=== PATIENT | male | born 1955 | race Caucasian/White ===

== ENCOUNTER 2020-06-04 19:33 | Emergency (ER) | payer MEDICARE, SELFPAY ==
--- NOTE | 2020-06-04 19:39 | XRR_ITS ---
PROCEDURE INFORMATION: Exam: XR Lumbosacral Spine, 2 or 3 Views Exam date and time: 06/04/2020 8:05 PM Age: 64 years old Clinical indication: Low back pain; Prior surgery; Additional info: Pain no trauam TECHNIQUE: Imaging protocol: XR of the lumbosacral spine, 2 or 3 views. COMPARISON: CT Abdomen/Pelvis Renal [id number] 07/27/2018 10:34 AM FINDINGS: Vertebrae: Grade 1 anterior listhesis of L4 on L5. Degenerative change and prominent facet arthropathy. Anatomic alignment. Gastrointestinal tract: Prominent stool. Vasculature: Vascular calcification. XR/XR lumbar spine 2-3V* [id number] IMPRESSION: 1. Grade 1 anterior listhesis of L4 on L5. 2. Degenerative change and prominent facet arthropathy.
[2020-06-04 20:38] VITALS: BP 121/76; PULSE 73; RESP 14; TEMP 35.8; O2SAT 95; BMI 33.8
[2020-06-04 23:46] LABS: Add Urine Microscopic? YES; Bilirubin Urine Neg (NEGATIVE); Blood Urine Neg (Negative); Glucose Urine UA 4+ (Normal); Ketones Urine Negative (Negative); Leukocyte Esterase Urine Negative (Negative); Nitrate Urine Negative (Negative); Protein Urine Trace (Negative); Urine Appearance Clear (CLEAR); Urine Color Yellow (Yellow); Urobilinogen Urine Norm (Negative); pH Urine 5 (5-7)
--- NOTE | 2020-06-04 23:54 | CTR_ITS ---
PROCEDURE INFORMATION: Exam: CT Abdomen And Pelvis Without And With Contrast Exam date and time: 06/04/2020 1:27 AM Age: 64 years old Clinical indication: Abdominal pain; Generalized; Patient HX: HX renal CA TECHNIQUE: Imaging protocol: Computed tomography of the abdomen and pelvis without and with intravenous contrast. Radiation optimization: All CT scans at this facility use at least one of these dose optimization techniques: automated exposure control; mA and/or kV adjustment per patient size (includes targeted exams where dose is matched to clinical indication); or iterative reconstruction. Contrast material: VISI; Contrast volume: 95 ml; Contrast route: INTRAVENOUS (IV); COMPARISON: CT Abdomen/Pelvis Renal [id number] 07/27/2018 10:34 AM RADIATION DOSE METRICS: Total DLP (mGy-cm): 2707.98 FINDINGS: Liver: Normal. No mass. Gallbladder and bile ducts: There are numerous gallstones seen in the dependent portion of the gallbladder. There are no inflammatory changes seen to suggest cholecystitis. Pancreas: Normal. No ductal dilation. Spleen: Normal. No splenomegaly. Adrenals: Normal. No mass. Kidneys and ureters: The there is a stable intermediate attenuation nodularity seen on the anterior aspect of the right kidney measuring approximately 1.5 cm. Stomach and bowel: Unremarkable. No obstruction. No mucosal thickening. Appendix: The appendix is visualized and is normal in configuration. Intraperitoneal space: Unremarkable. No free air. No significant fluid collection. Vasculature: Unremarkable. No abdominal aortic aneurysm. Lymph nodes: Unremarkable. No enlarged lymph nodes. Bladder: Unremarkable as visualized. Reproductive: Unremarkable as visualized. Bones/joints: Unremarkable. No acute fracture. Soft tissues: Unremarkable. CT/CT abdomen pelvis wo/w [id number] IMPRESSION: 1. There are no acute abdominal findings. 2. Multiple gallstones without evidence of cholecystitis. 3. Stable soft tissue attenuation nodularity on the anterior aspect of the right kidney measuring 1.5 cm. Radiation Dose CTDIVOL = (mGy): DLP = 2707.98 (mGy-cm)
--- NOTE | 2020-06-04 23:55 | CTR_ITS ---
PROCEDURE INFORMATION: Exam: CT Lumbar Spine Without Contrast Exam date and time: 06/04/2020 1:27 AM Age: 64 years old Clinical indication: Low back pain TECHNIQUE: Imaging protocol: Computed tomography images of the lumbar spine without contrast. Radiation optimization: All CT scans at this facility use at least one of these dose optimization techniques: automated exposure control; mA and/or kV adjustment per patient size (includes targeted exams where dose is matched to clinical indication); or iterative reconstruction. COMPARISON: CR XR lumbar spine 2-3V* [id number] 06/04/2020 7:59 PM RADIATION DOSE METRICS: Total DLP (mGy-cm): 2206.62 FINDINGS: Vertebrae: No acute fracture. Normal alignment. Discs/Spinal canal/Neural foramina: There is a loss of disc height seen from L3-L5. At L3-L4, there is broad-based posterior disc bulging present. Moderate bilateral ligamentum flavum hypertrophy and facet hypertrophy is seen circumferentially narrowing the spinal canal. At L4-L5, prominent broad-based posterior disc bulging is seen. Moderate facet and ligamentum flavum hypertrophy is also present bilaterally circumferentially narrowing the spinal canal. At L5-S1, broad-based posterior disc bulging is seen. Soft tissues: Unremarkable. CT/CT lumbar spine wo con* [id number] IMPRESSION: 1. There are no acute osseous findings. 2. 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 Radiation Dose CTDIVOL = (mGy): DLP = 2206.62 (mGy-cm)
--- NOTE | 2020-06-04 23:55 | CTR_ITS ---
PROCEDURE INFORMATION: Exam: CT Thoracic Spine Without Contrast Exam date and time: 06/04/2020 1:27 AM Age: 64 years old Clinical indication: Pain in thoracic spine TECHNIQUE: Imaging protocol: Computed tomography images of the thoracic spine without contrast. Radiation optimization: All CT scans at this facility use at least one of these dose optimization techniques: automated exposure control; mA and/or kV adjustment per patient size (includes targeted exams where dose is matched to clinical indication); or iterative reconstruction. COMPARISON: No relevant prior studies available. RADIATION DOSE METRICS: Total DLP (mGy-cm): 2903.45 FINDINGS: Vertebrae: No acute fracture. Normal alignment. Discs/Spinal canal/Neural foramina: Loss of disc height and vacuum disc phenomenon is seen within the thoracic spine compatible with degenerative disc disease. Soft tissues: Unremarkable. CT/CT thoracic spin wo con* [id number] IMPRESSION: There are no acute osseous findings. Radiation Dose CTDIVOL = (mGy): DLP = 2903.45 (mGy-cm)
--- NOTE | 2020-06-04 23:55 | XRR_ITS ---
PROCEDURE INFORMATION: Exam: XR Chest, 1 View Exam date and time: 06/05/2020 12:45 AM Age: 64 years old Clinical indication: Chest pain and other: Low back and leg pain; Type not specified; Prior surgery; Surgery date: 6+ months; Surgery type: Cabg; Pacemaker TECHNIQUE: Imaging protocol: XR of the chest Views: 1 view. COMPARISON: CR Chest 1 [place] [id number] 01/30/2019 7:50 AM FINDINGS: Tubes, catheters and devices: AICD. Lungs: Interstitial prominence without acute airspace disease. Pleural space: No pneumothorax or pleural effusion. Heart/Mediastinum: No cardiomegaly. Bones/joints: Median sternotomy. Degenerative change. When correlating with the previous study, no significant interval changes are present. XR/XR chest 1V portable [id number] IMPRESSION: Stable appearance of the chest, not significantly changed from 01/30/19.
[2020-06-05 00:18] LABS: Basophils # 0.1 10^3/uL (0.0-0.1); Basophils % 1.2 %; Eosinophils # 0.1 10^3/uL (0.0-0.8); Eosinophils % 1.5 %; Hemoglobin 14.5 g/dL (11.7-16.6); Lymphocytes # 2.1 10^3/uL (0.8-4.8); Lymphocytes % 25.2 %; Mean Corpuscular HGB Conc 33.7 g/dL (30.0-36.0); Monocytes % 12.1 %; Neutrophils # 4.94 10^3/uL (1.8-7.7); Neutrophils % 58.6 %; Nucleated Red Blood Cells % 0 %; Platelet Count 200 10^3/cmm (130-400); Red Blood Count 4.83 10^6/uL (4.1-5.3); Red Cell Distribution Width 12.8 % (12.1-15.1); White Blood Count 8.4 10^3/uL (4.0-10.0)
[2020-06-05 00:39] LABS: Alanine Aminotransferase 17 U/L (0-41); Albumin Level 4.9 g/dL (3.5-5.2); Alkaline Phosphatase 126 IU/L (40-130); Anion Gap 15.6 (5-19); Aspartate Amino Transferase 14 U/L (0-40); Blood Urea Nitrogen 31 mg/dL (8-23); Carbon Dioxide 26 mmol/L (22-29); Chloride 91 mmol/L (98-107); Globulin 2.4 g/dL (1.3-4.6); Glomerular Filtration Rate 50.7 mL/min (90-130); Glucose 374 mg/dL (65-115); Lipase 46 U/L (13-60); Magnesium 2.1 mg/dL (1.7-2.3); Osmolality Calculated 278 mOsm/kg (285-295); Potassium 4.6 mmol/L (3.5-5.1); Sodium 128 mmol/L (136-145); Total Bilirubin 0.4 mg/dL (0.15-1.2); Total Protein 7.3 g/dL (6.6-8.7)
[2020-06-05 01:13] LABS: INR 0.93 (0.8-1.2)
--- NOTE | 2020-06-05 01:19 | W.ED.EXTPRO ---
HPI - Extremity Problem General: Chief complaint: Extremity Problem,Nontraumatic Stated complaint: lower back pain, leg pain Time Seen by Provider: 06/04/20 23:48 Source: patient Mode of arrival: ambulatory Limitations: no limitations History of Present Illness: HPI Narrative: Mr. Barron is a nice 64-year-old male who comes in complaining of low back pain. Patient states that he has chronic back pain and chronic flank pain secondary to a kidney mass. To his knowledge the mass has not metastasized and is not cancer that he is certain of. The patient's back pain is chronic but was made worse when he fell in the shower yesterday. Patient states since that time he is just been tired and fatigued and wanting to sleep more than normal. Feels weak all throughout his body. His back pain is slightly worse than normal and he believes this is from the fall. Patient has an MRI scheduled sometime later this month looking for any worsening of his degenerative disc disease. Associated symptoms: Deny chest pain, fever(s) or rash Review of Systems Const: Denies: fever(s), chills, body aches, fatigue, malaise or diaphoresis Eyes: Denies: change in vision, blurry vision, blind spots, photophobia, eye discharge or eye redness ENMT: Denies: throat pain, odynophagia, hoarseness, swelling of lips/tongue, oral sores, ear or mastoid pain, ear discharge, change in hearing or nasal discharge Card: Denies: chest pain, palpitations, irregular heart rhythm, edema, lightheadedness, syncope, pre-syncope, dyspnea on exertion or orthopnea Resp: Denies: dyspnea, productive cough, non-productive cough, wheezing, hemoptysis or chest congestion GI: Denies: abdominal pain, nausea, vomiting, hematemesis, coffee ground emesis, heartburn, diarrhea, constipation, GI cramping, hematochezia or melena : Denies: flank pain, dysuria, urinary frequency, urinary urgency or hematuria Musc: Reports: back pain; Denies: neck pain, extremity pain, extremity swelling, joint pain, joint swelling, joint redness, joint warmth or joint stiffness Skin/Breast: Denies: rash, pruritus, erythema, skin tenderness or jaundice Neuro: Denies: headache(s), numbness in extremities, weakness in extremities, sensory changes, lack of coordination, difficulty walking, dizziness, vertigo, confusion, Slurred speech present or seizure-like activity Jasper/Lymph: Denies: easy bruising, easy bleeding, petechiae, purpura or enlarged lymph nodes All/Imm: Denies: urticaria, throat swelling, tongue swelling, facial swelling or acute wheezing PFSH ED PFSH: Medical History Ascending aortic aneurysm BPH (benign prostatic hyperplasia) CKD (chronic kidney disease) stage 3, GFR 30-59 ml/min Congestive heart failure COPD (chronic obstructive pulmonary disease) Coronary artery disease CVA (cerebral vascular accident) Degenerative disc disease DM type 2 (diabetes mellitus, type 2) Hyperlipidemia Hypertension Kidney mass Myocardial infarction Surgical History Hx of CABG S/P percutaneous transluminal angioplasty (DIRECTOR OF ACCOUNTS RECEIVABLE) with stent placement Physical Exam Const: COMMON NORMALS: no acute distress, patient oriented x3, no limitations, healthy appearing and well nourished GENERAL APPEARANCE: cooperative, well kempt and well developed HENMT: COMMON NORMALS: normocephalic, atraumatic, external ears normal, EAC's normal and Normal external nose present HEAD & SCALP: normal to inspection, normocephalic and atraumatic FACE & SINUS: normal facial exam and face symmetric NOSE: Normal external nose present and Normal nares present EXTERNAL EAR: Yes external ears normal EXTERNAL AUDITORY CANAL: EAC's normal MOUTH: Normal oral and palatal mucosa present, lip normal and tongue normal Eye: COMMON NORMALS: Equal, round and reactive pupils present and conjunctivae normal GENERAL EYE: appearance normal, both eyes and all related structures ALIGNMENT: Yes alignment normal PERIORBITAL: periorbital findings normal EYELID: eyelids normal CONJUNCTIVA: Yes conjunctivae normal SCLERA: sclerae normal PUPIL: Yes Equal, round and reactive pupils present Neck/C-Spine: COMMON NORMALS: full ROM, no lymphadenopathy, supple, no meningeal signs and no JVD GENERAL: Yes normal visual inspection and Yes trachea midline Chest: COMMONS NORMALS: normal inspection of the chest and normal palpation of entire chest wall Resp: COMMON NORMALS: normal respiratory effort, No retractions and No use of accessory muscles EFFORT & INSPECTION: Yes able to speak in complete sentences and Yes symmetric chest movement AUSCULTATION: no crackles, no rales, no rhonchi and no wheezes Cardio: COMMON NORMALS: no JVD, regular rate, regular rhythm, S1 normal heart sound present and S2 normal heart sound present RATE: regular rate RHYTHM: regular rhythm HEART SOUNDS: S1 normal heart sound present, S2 normal heart sound present, no click, no gallops, no murmurs, no rubs and abnormal split S2 GI: COMMON NORMALS: Soft to palpation and No hepatosplenomegaly present PALPATION: Yes Soft to palpation, No Tenderness to palpation present (GI), No Guarding due to palpation present (GI), No Rigid due to palpation, Yes No hepatosplenomegaly present, No Hernia present, No Palpable mass present and No Pulsatile mass present : COMMON NORMALS: Yes no CVA tenderness BLADDER/KIDNEY EXAM: Yes no CVA tenderness Back/Pelvis: COMMON NORMALS: no CVA tenderness, thoracic and lumbar spine normal to inspection, no thoracic nor lumbar tenderness and thoraco-lumbar ROM normal Extremity: COMMON NORMALS: normal to inspection, full ROM, capillary refill normal, no joint enlargement, no clubbing, cyanosis or edema and no calf tenderness Neuro: COMMON NORMALS: patient oriented x3, CN's II-XII intact bilaterally, moves all extremities, no focal motor deficits and no sensory deficits noted MENINGEAL SIGNS: Yes no meningeal signs SPEECH: speech normal Psych: COMMON NORMALS: mental status grossly normal, Normal thought process present, cooperative, normal affect, speech normal and activity/motor behavior normal APPEARANCE: Yes well kempt SPEECH: Yes normal speech THOUGHT PROCESS: Normal thought process present Skin: COMMON NORMALS: no rashes or lesions noted, turgor normal, no jaundice, no petechiae and no mottling GENERAL SKIN EXAM: no rashes or lesions noted and turgor normal Course Vital Signs: Vital signs: Vital Signs Temperature 96.4 F L 06/04/20 20:38 Pulse Rate 76 06/05/20 04:09 Respiratory Rate 14 06/05/20 04:09 Blood Pressure 151/96 06/05/20 04:09 Pulse Oximetry 98 06/05/20 04:09 MDM - Extremity (Nontraumatic) MDM Narrative: Medical decision making narrative: The patient has exacerbated his chronic low back pain. His MRI in the future is supposed to look for a herniated disc but he has no leg weakness or loss of reflexes his tendon reflexes are 2/4 at the knees bilaterally and the ankles. There is no clonus present. His Babinski is normal. Patient has no loss of bowel or bladder control and he has no sign of cauda equina syndrome. The patient is negative for CRAFTI as a cause for his pain. I will go ahead and put him on some pain medicine and muscle relaxers and have him follow-up. I did work him up for what he described initially as cancer I was concerned may have metastasized although his history did not suggest a cord compressive syndrome but this mass is a 15 mm and only 1 mm bigger than 2 years ago. The patient wants to follow-up with Dr. Del Toro for further evaluation of this. Lab Data: Labs: Lab Results 06/04/20 06/04/20 06/04/20 Range/Units 00:58 22:15 23:58 WBC 8.4 (4.0-10.0) 10^3/ uL RBC 4.83 (4.1-5.3) 10^6/u L Hgb 14.5 (11.7-16.6) g/dL Hct 43.0 (42.0-52.0) % MCV 89.0 (80-94) fL MCH 30.0 (28.0-34.0) pg MCHC 33.7 (30.0-36.0) g/dL RDW 12.8 (12.1-15.1) % Plt Count 200 (130-400) 10^3/c mm MPV 10.0 (7.4-10.4) fL Neut % (Auto) 58.6 % Lymph % (Auto) 25.2 % [place] % (Auto) 12.1 % Eos % (Auto) 1.5 % Baso % (Auto) 1.2 % Neut # (Auto) 4.94 (1.8-7.7) 10^3/u L Lymph # (Auto) 2.1 (0.8-4.8) 10^3/u L [place] # (Auto) 1.0 H (0.2-0.9) 10^3/u L Eos # (Auto) 0.1 (0.0-0.8) 10^3/u L Baso # (Auto) 0.1 (0.0-0.1) 10^3/u L Nucleated RBC % (a uto) 0 % Nucleated RBCs # 0.0 /100WBC PT 12.80 (10.5-13.3) SECO NDS INR 0.93 (0.8-1.2) Specimen Type Sample Site ABG pH (7.35-7.45) ABG pCO2 (35-45) mmHg ABG pO2 (80.0-100.0) mmH g ABG HCO3 (22-26) mmol/L ABG Base Excess (-2.0-2.0) mmol/ L Wilber Test Hematocrit (42-52) % O2 Delivery Device FiO2 % Oracle Pl Sql Developer ID Sodium (136-145) mmol/L Potassium (3.5-5.1) mmol/L Chloride (98-107) mmol/L Carbon Dioxide (22-29) mmol/L Anion Gap (5-19) BUN (8-23) mg/dL Creatinine (0.7-1.2) mg/dL GFR Calculation (90-130) mL/min Glucose (65-115) mg/dL Calculated Osmolal ity (285-295) mOsm/k g Calcium (8.5-10.5) mg/dL Magnesium (1.7-2.3) mg/dL Total Bilirubin (0.15-1.2) mg/dL AST (0-40) U/L ALT (0-41) U/L Alkaline Phosphata se (40-130) IU/L Total Protein (6.6-8.7) g/dL Albumin (3.5-5.2) g/dL Globulin (1.3-4.6) g/dL Lipase (13-60) U/L Urine Color Yellow (Yellow) Urine Appearance Clear (CLEAR) Urine pH 5 (5-7) Ur Specific Gravit y 1.010 (1.005-1.030) Urine Protein Trace (Negative) Urine Glucose (UA) 4+ H (Normal) Urine Ketones Negative (Negative) Urine Blood Neg (Negative) Urine Nitrate Negative (Negative) Urine Bilirubin Neg (NEGATIVE) Urine Urobilinogen Norm (Negative) mg/dL Ur Leukocyte Violet ase Negative (Negative) Urine RBC None (0-2) /hpf Urine WBC None (0-5) /hpf Ur Squamous Epith Cells None (0-5) Amorphous Sediment Not Reportable Urine Bacteria None (NONE) 07/09/20 07/10/20 Range/Units 23:58 02:10 WBC (4.0-10.0) 10^3/ uL RBC (4.1-5.3) 10^6/u L Hgb (11.7-16.6) g/dL Hct (42.0-52.0) % MCV (80-94) fL MCH (28.0-34.0) pg MCHC (30.0-36.0) g/dL RDW (12.1-15.1) % Plt Count (130-400) 10^3/c mm MPV (7.4-10.4) fL Neut % (Auto) % Lymph % (Auto) % [place] % (Auto) % Eos % (Auto) % Baso % (Auto) % Neut # (Auto) (1.8-7.7) 10^3/u L Lymph # (Auto) (0.8-4.8) 10^3/u L [place] # (Auto) (0.2-0.9) 10^3/u L Eos # (Auto) (0.0-0.8) 10^3/u L Baso # (Auto) (0.0-0.1) 10^3/u L Nucleated RBC % (a uto) % Nucleated RBCs # /100WBC PT (10.5-13.3) SECO NDS INR (0.8-1.2) Specimen Type Arterial Sample Site Radial, left ABG pH 7.39 (7.35-7.45) ABG pCO2 43.3 (35-45) mmHg ABG pO2 80.0 (80.0-100.0) mmH g ABG HCO3 26.0 (22-26) mmol/L ABG Base Excess 0.7 (-2.0-2.0) mmol/ L Wilber Test Pos Hematocrit 43.6 (42-52) % O2 Delivery Device None FiO2 21.0 % Oracle Pl Sql Developer ID [email or web address] Sodium 128 L (136-145) mmol/L Potassium 4.6 (3.5-5.1) mmol/L Chloride 91 L (98-107) mmol/L Carbon Dioxide 26 (22-29) mmol/L Anion Gap 15.6 (5-19) BUN 31 H (8-23) mg/dL Creatinine 1.4 H (0.7-1.2) mg/dL GFR Calculation 50.7 L (90-130) mL/min Glucose 374 H (65-115) mg/dL Calculated Osmolal ity 278 L (285-295) mOsm/k g Calcium 10.0 (8.5-10.5) mg/dL Magnesium 2.1 (1.7-2.3) mg/dL Total Bilirubin 0.4 (0.15-1.2) mg/dL AST 14 (0-40) U/L ALT 17 (0-41) U/L Alkaline Phosphata se 126 (40-130) IU/L Total Protein 7.3 (6.6-8.7) g/dL Albumin 4.9 (3.5-5.2) g/dL Globulin 2.4 (1.3-4.6) g/dL Lipase 46 (13-60) U/L Urine Color (Yellow) Urine Appearance (CLEAR) Urine pH (5-7) Ur Specific Gravit y (1.005-1.030) Urine Protein (Negative) Urine Glucose (UA) (Normal) Urine Ketones (Negative) Urine Blood (Negative) Urine Nitrate (Negative) Urine Bilirubin (NEGATIVE) Urine Urobilinogen (Negative) mg/dL Ur Leukocyte Violet ase (Negative) Urine RBC (0-2) /hpf Urine WBC (0-5) /hpf Ur Squamous Epith Cells (0-5) Amorphous Sediment Urine Bacteria (NONE) Imaging Data^: CT Head: Radiologist's impression: [place] [address] CT Scan Report Signed Patient: Mike Barron Unit #: [id number] : 1955 Age/Sex: 64 / M ADM Date: 06/04/20 Loc: ER Room/Bed: Attending Dr: Ordering Provider/Ordering MD: Rosa Elena Rachel DO Date of Service: 06/05/20 Procedure(s): CT head wo con* [id number] Accession Number(s): [id number] Report Number: [id number] PROCEDURE INFORMATION: Exam: CT Head Without Contrast Exam date and time: 06/05/2020 1:32 AM Age: 64 years old Clinical indication: Injury or trauma; Fall; Initial encounter; Blunt trauma (contusions or hematomas); Without loss of consciousness; Additional info: Fall/injury/on blood thinners TECHNIQUE: Imaging protocol: Computed tomography of the head without contrast. Radiation optimization: All CT scans at this facility use at least one of these dose optimization techniques: automated exposure control; mA and/or kV adjustment per patient size (includes targeted exams where dose is matched to clinical indication); or iterative reconstruction. COMPARISON: CT head wo con* [id number] 01/26/2019 4:33 AM RADIATION DOSE METRICS: Total DLP (mGy-cm): 871.82 FINDINGS: Brain: There is moderate diffuse cerebral atrophy. Patchy areas of hypoattenuation are seen in the deep white matter of the cerebral hemispheres bilaterally compatible with deep white matter microvascular disease. Ventricles: Normal. No ventriculomegaly. Bones/joints: Unremarkable. No acute fracture. Sinuses: Visualized sinuses are unremarkable. No fluid levels. Mastoid air cells: Visualized mastoid air cells are well aerated. Soft tissues: Unremarkable. CT/CT head wo con* [id number] IMPRESSION: There are no acute intracranial findings. Radiation Dose CTDIVOL = (mGy): DLP = 871.82 (mGy-cm) Dictated By: Chaz Cruz MD Signed By: Chaz Cruz MD Signed Date/Time: 06/05/20217 DD/ 6 CT Thoracic Spine: Radiologist's impression: [place] [address] CT Scan Report Signed Patient: Mike Barron Unit #: [id number] : 1955 Age/Sex: 64 / M ADM Date: 06/04/20 Loc: ER Room/Bed: Attending Dr: Ordering Provider/Ordering MD: Rosa Elena Rachel DO Date of Service: 06/04/20 Procedure(s): CT thoracic spin wo con* [id number] Accession Number(s): [id number] Report Number: [id number] PROCEDURE INFORMATION: Exam: CT Thoracic Spine Without Contrast Exam date and time: 06/04/2020 1:27 AM Age: 64 years old Clinical indication: Pain in thoracic spine TECHNIQUE: Imaging protocol: Computed tomography images of the thoracic spine without contrast. Radiation optimization: All CT scans at this facility use at least one of these dose optimization techniques: automated exposure control; mA and/or kV adjustment per patient size (includes targeted exams where dose is matched to clinical indication); or iterative reconstruction. COMPARISON: No relevant prior studies available. RADIATION DOSE METRICS: Total DLP (mGy-cm): 2903.45 FINDINGS: Vertebrae: No acute fracture. Normal alignment. Discs/Spinal canal/Neural foramina: Loss of disc height and vacuum disc phenomenon is seen within the thoracic spine compatible with degenerative disc disease. Soft tissues: Unremarkable. CT/CT thoracic spin wo con* [id number] IMPRESSION: There are no acute osseous findings. Radiation Dose CTDIVOL = (mGy): DLP = 2903.45 (mGy-cm) Dictated By: Chaz Cruz MD Signed By: Chaz Cruz MD Signed Date/Time: 06/05/20226 DD/ 4 CT Lumbar Spine: Radiologist's impression: [address] [address] [address] Scan Report Signed Patient: Mike Barron Unit #: [id number] : 1955 Age/Sex: 64 / M ADM Date: 06/04/20 Loc: ER Room/Bed: Attending Dr: Ordering Provider/Ordering MD: Rosa Elena Rachel DO Date of Service: 06/04/20 Procedure(s): CT lumbar spine wo con* [id number] Accession Number(s): [id number] Report Number: [id number] PROCEDURE INFORMATION: Exam: CT Lumbar Spine Without Contrast Exam date and time: 06/04/2020 1:27 AM Age: 64 years old Clinical indication: Low back pain TECHNIQUE: Imaging protocol: Computed tomography images of the lumbar spine without contrast. Radiation optimization: All CT scans at this facility use at least one of these dose optimization techniques: automated exposure control; mA and/or kV adjustment per patient size (includes targeted exams where dose is matched to clinical indication); or iterative reconstruction. COMPARISON: CR XR lumbar spine 2-3V* [id number] 06/04/2020 7:59 PM RADIATION DOSE METRICS: Total DLP (mGy-cm): 2206.62 FINDINGS: Vertebrae: No acute fracture. Normal alignment. Discs/Spinal canal/Neural foramina: There is a loss of disc height seen from L3-L5. At L3-L4, there is broad-based posterior disc bulging present. Moderate bilateral ligamentum flavum hypertrophy and facet hypertrophy is seen circumferentially narrowing the spinal canal. At L4-L5, prominent broad-based posterior disc bulging is seen. Moderate facet and ligamentum flavum hypertrophy is also present bilaterally circumferentially narrowing the spinal canal. At L5-S1, broad-based posterior disc bulging is seen. Soft tissues: Unremarkable. CT/CT lumbar spine wo con* [id number] IMPRESSION: 1. There are no acute osseous findings. 2. 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 Radiation Dose CTDIVOL = (mGy): DLP = 2206.62 (mGy-cm) Dictated By: Chaz Cruz MD Signed By: Chaz Cruz MD Signed Date/Time: 06/05/20229 DD/ 8 CT Abd/Pel: Radiologist's impression: [place] [address] CT Scan Report Signed Patient: Mike Barron Unit #: [id number] : 1955 Age/Sex: 64 / M ADM Date: 06/04/20 Loc: ER Room/Bed: Attending Dr: Ordering Provider/Ordering MD: Rosa Elena Rachel DO Date of Service: 06/04/20 Procedure(s): CT abdomen pelvis wo/w [id number] Accession Number(s): [id number] Report Number: [id number] PROCEDURE INFORMATION: Exam: CT Abdomen And Pelvis Without And With Contrast Exam date and time: 06/04/2020 1:27 AM Age: 64 years old Clinical indication: Abdominal pain; Generalized; Patient HX: HX renal CA TECHNIQUE: Imaging protocol: Computed tomography of the abdomen and pelvis without and with intravenous contrast. Radiation optimization: All CT scans at this facility use at least one of these dose optimization techniques: automated exposure control; mA and/or kV adjustment per patient size (includes targeted exams where dose is matched to clinical indication); or iterative reconstruction. Contrast material: VISI; Contrast volume: 95 ml; Contrast route: INTRAVENOUS (IV); COMPARISON: CT Abdomen/Pelvis Renal [id number] 07/27/2018 10:34 AM RADIATION DOSE METRICS: Total DLP (mGy-cm): 2707.98 FINDINGS: Liver: Normal. No mass. Gallbladder and bile ducts: There are numerous gallstones seen in the dependent portion of the gallbladder. There are no inflammatory changes seen to suggest cholecystitis. Pancreas: Normal. No ductal dilation. Spleen: Normal. No splenomegaly. Adrenals: Normal. No mass. Kidneys and ureters: The there is a stable intermediate attenuation nodularity seen on the anterior aspect of the right kidney measuring approximately 1.5 cm. Stomach and bowel: Unremarkable. No obstruction. No mucosal thickening. Appendix: The appendix is visualized and is normal in configuration. Intraperitoneal space: Unremarkable. No free air. No significant fluid collection. Vasculature: Unremarkable. No abdominal aortic aneurysm. Lymph nodes: Unremarkable. No enlarged lymph nodes. Bladder: Unremarkable as visualized. Reproductive: Unremarkable as visualized. Bones/joints: Unremarkable. No acute fracture. Soft tissues: Unremarkable. CT/CT abdomen pelvis wo/w [id number] IMPRESSION: 1. There are no acute abdominal findings. 2. Multiple gallstones without evidence of cholecystitis. 3. Stable soft tissue attenuation nodularity on the anterior aspect of the right kidney measuring 1.5 cm. Radiation Dose CTDIVOL = (mGy): DLP = 2707.98 (mGy-cm) Dictated By: Chaz Cruz MD Signed By: Chaz Cruz MD Signed Date/Time: 06/05/20222 DD/ 0 Discharge Plan Discharge Patient Disposition: Home, Self-Care Clinical Impression: Back pain Qualifiers: Back pain location: low back pain Chronicity: chronic Back pain laterality: right Sciatica presence: with sciatica Sciatica laterality: sciatica of right side Qualified Code(s): M54.41 - Lumbago with sciatica, right side Condition: Stable Prescriptions: New cyclobenzaprine 10 mg tablet 10 mg PO TID PRN (Reason: muscle spasm) Qty: 30 RF: 0 Severn 5-325 mg tablet 1 tab PO Q6H PRN (Reason: pain) 5 Days Qty: 12 RF: 0 Discharge Orders: Discharge Order (Routine); Ordered 06/05/20 Ordered By: Rosa Elena Rachel Referrals: Frederic Ernandez MD [Physician] - 1-3 days Discharge Diet: Advance as tolerated Discharge Activity: Increase activity as tolerated Patient Instructions: Lumbar Radiculopathy (ED), Chronic Back Pain (ED), Back Pain (ED) Activity Restrictions/Additional Instructions: Please return to the ER immediately for any of the signs or symptoms listed on your discharge instruction sheets, worsening/changing of your symptoms, you are not getting better as quickly as expected, or for ANY other cause or concerns. Return to the ER for increased pain, loss of bowel or bladder control, numbness in your groin, fever, vomiting, abdominal pain, or for any other cause for concern. Be certain to follow-up with Dr. Del Toro concerning your kidney mass as already planned. Discharge Date/Time: 06/05/20 04:10 Coding Level of Care Code ED Tooth Cutter Spur for Chg Fwd Exam Comprehensive
--- NOTE | 2020-06-05 01:30 | CTR_ITS ---
PROCEDURE INFORMATION: Exam: CT Head Without Contrast Exam date and time: 06/05/2020 1:32 AM Age: 64 years old Clinical indication: Injury or trauma; Fall; Initial encounter; Blunt trauma (contusions or hematomas); Without loss of consciousness; Additional info: Fall/injury/on blood thinners TECHNIQUE: Imaging protocol: Computed tomography of the head without contrast. Radiation optimization: All CT scans at this facility use at least one of these dose optimization techniques: automated exposure control; mA and/or kV adjustment per patient size (includes targeted exams where dose is matched to clinical indication); or iterative reconstruction. COMPARISON: CT head wo con* [id number] 01/26/2019 4:33 AM RADIATION DOSE METRICS: Total DLP (mGy-cm): 871.82 FINDINGS: Brain: There is moderate diffuse cerebral atrophy. Patchy areas of hypoattenuation are seen in the deep white matter of the cerebral hemispheres bilaterally compatible with deep white matter microvascular disease. Ventricles: Normal. No ventriculomegaly. Bones/joints: Unremarkable. No acute fracture. Sinuses: Visualized sinuses are unremarkable. No fluid levels. Mastoid air cells: Visualized mastoid air cells are well aerated. Soft tissues: Unremarkable. CT/CT head wo con* [id number] IMPRESSION: There are no acute intracranial findings. Radiation Dose CTDIVOL = (mGy): DLP = 871.82 (mGy-cm)
[2020-06-05] MEDS: iodixanol 320 mg/mL 100mL Btl IV (02:02)
[2020-06-05 02:18] LABS: ABG PCO2 43.3 mmHg (35-45); ABG PH Result 7.39 (7.35-7.45); Arterial Blood Gas Hematocrit 43.6 % (42-52); Base Excess ABG 0.7 mmol/L (-2.0-2.0); Blood Gas Allen Test Pos; Blood Gas Sample Site Radial, left; Blood Gas Sample Type Arterial
[2020-06-05 04:09] VITALS: BP 151/96; PULSE 76; RESP 14; O2SAT 98
--- NOTE | 2020-06-05 11:32 | DCPLANNER ---
Addendum entered by Debra Jimenez 06/10/20 13:52: product manager medical device spoke with Agata at the office of Dr. Del Toro, was told that clinic has tried to reach patient to schedule a follow up appointment, and has not been able to reach patient to schedule the appointment. Original Note: product manager medical device had message to schedule a follow up appointment for patient with Dr. Del Toro. product manager medical device called the office of Dr. Del Toro, spoke with Agata, gave clinic patients information. product manager medical device was told that patients information would be printed and reviewed. Clinic will call patient with appointment information.
== END 2020-06-05 04:10 | disposition home or self-care (01) ==
PROVIDERS: Emergency Provider Emergency Medicine
DX: G89.29 Other chronic pain (principal); M54.41 Lumbago with sciatica, right side; I13.0 Hypertensive heart and chronic kidney disease with heart failure and stage 1 through stage 4 chronic kidney disease, or unspecified chronic kidney disease; E11.22 Type 2 diabetes mellitus with diabetic chronic kidney disease; N18.3 Chronic kidney disease, stage 3 (moderate); I50.9 Heart failure, unspecified; J44.9 Chronic obstructive pulmonary disease, unspecified; I25.10 Atherosclerotic heart disease of native coronary artery without angina pectoris; Z86.73 Personal history of transient ischemic attack (TIA), and cerebral infarction without residual deficits; E78.5 Hyperlipidemia, unspecified; I25.2 Old myocardial infarction; Z95.1 Presence of aortocoronary bypass graft
CPT/HCPCS: 12345; 36600; 70450; 71045; 72100; 72128; 72131; 74178; 80053; 81001; 81003; 82803; 83690; 83735; 85025; 85610; 99282; 99283; Q9967

== ENCOUNTER 2021-10-02 14:59 | Inpatient (IN) | payer MEDICARE, SELFPAY ==
[2021-10-02] VITALS (48 sets, daily range): BP systolic 130–188; BP diastolic 74–111; PULSE 78–90; RESP 13–33; TEMP 36.4–37.1; O2SAT 82–95
--- NOTE | 2021-10-02 15:39 | XRR_ITS ---
PROCEDURE INFORMATION: Exam: XR Chest Exam date and time: 10/02/2021 3:39 PM Age: 66 years old Clinical indication: Pain; Chest pressure; Additional info: Dyspnea TECHNIQUE: Imaging protocol: XR of the chest. Views: 1 view. COMPARISON: CR XR chest 1V portable [id number] 06/05/2020 12:33 AM FINDINGS: Limitations: Study performed in the apical lordotic projection. Tubes, catheters and devices: Permanent pacemaker/AICD noted. Lungs: No consolidative pulmonary infiltrate noted. Pleural spaces: No pleural effusion. No pneumothorax. Heart/Mediastinum: No cardiomegaly. Bones/joints: Median sternotomy noted. XR/XR chest 1V portable [id number] IMPRESSION: 1. No consolidative pulmonary infiltrate noted. 2. There is no interval change from the prior examination. Radiation Dose CTDIVOL = (mGy): DLP = (mGy-cm)
--- NOTE | 2021-10-02 15:39 | ECG_ITS ---
[facility] Test Date: 2021-10-02 Pat Name: Mike Barron Department: Room: Gender: Male Friend Of The Court: : 1955 Requested By: Ben Gaston Order Number: [id number] Latrice MD: Ra Maxwell M.D. Measurements Intervals [place] Rate: 78 P: 40 [place]: 186 QRS: -81 QRSD: 132 T: 102 QT: 432 QTc: 495 Interpretive Statements ELECTRONIC VENTRICULAR PACEMAKER ABNORMAL RHYTHM ECG Compared to ECG 01/30/2019 07:09:40 No significant changes Electronically Signed On 10-03-2021 21:59:53 WARP TYING MACHINE TENDER by Ra Maxwell M.D. [id number]
--- NOTE | 2021-10-02 16:27 | ED_ITS ---
HPI - General Adult General: Chief complaint: Shortness of Breath/Dyspnea Stated complaint: SOB, COUGH, FLUID BUILD UP, HX CHF Time Seen by Provider: 10/02/21 16:14 History of Present Illness: HPI narrative: Patient is 66-year-old male with history of CABG, pacemaker dependence, CHF exacerbation with EF of 20% on Lasix 20mg BID tells me that he ran out of his Lasix yesterday and is currently visiting from [place]. Patient states that this morning when he woke up, he had shortness of breath and abdominal swelling. Patient denies any chest pain, nausea/vomiting, arm pain jaw pain back pain, abdominal pain or diarrhea. Patient states that he is able to void without any problem. Addition, patient says that he has mild headache today when his blood pressure is high. He denies any focal weakness, double vision, facial droop, slurring of speech, recent trauma or fall. Onset: this AM Duration: 8 hrs Location:home Severity:moderate Review of Systems Narrative: Constitutional: No fever, no chills. HEENT: No vision changes CV: No chest pain, no palpitations PULM: no cough, +dyspnea. GI: No abdominal pain, no N/V/D. : No dysuria MSKEL: No muscle pain SKIN: No new rashes, no lesions. NEURO: No headache, no focal weakness. HEME: No visible bruises PSYCH: Normal mood PFSH ED PFSH: Medical History (Updated 10/02/21 @ 16:32 by Ben Gaston MD) Ascending aortic aneurysm BPH (benign prostatic hyperplasia) CKD (chronic kidney disease) stage 3, GFR 30-59 ml/min Congestive heart failure COPD (chronic obstructive pulmonary disease) Coronary artery disease CVA (cerebral vascular accident) Degenerative disc disease DM type 2 (diabetes mellitus, type 2) Hyperlipidemia Hypertension Kidney mass Myocardial infarction Surgical History Hx of CABG S/P percutaneous transluminal angioplasty (TOBACCO DIPPER) with stent placement Physical Exam Narrative: EXAM NARRATIVE: Head: Atraumatic Eyes: PERRL, conjunctiva without injection ENT: Mucous membrane moist NECK: Supple, ROM intact LUNGS: +Mild coarse breath sounds CV: RRR ABDOMEN: Soft, nontender in all quadrants, +abdominal distension, no guarding or rebound tenderness EXTREMITY: Normal ROM, 1+ lower extremity edema SKIN: No rash or erythema NEURO: Awake and alert, no focal motor deficits PSYCH: Normal mood and affect Course Vital Signs: Vital signs: Vital Signs Temperature 97.6 F 10/02/21 16:53 Pulse Rate 80 10/02/21 16:53 Respiratory Rate 20 H 10/02/21 16:53 Blood Pressure 188/111 10/02/21 16:53 Pulse Oximetry 90 10/02/21 16:53 MDM - General Adult MDM Narrative: Medical decision making narrative: 66-year-old male with a history of CABG, pacemaker dependence presenting to the emergency room with concerns for shortness of breath after he ran out of his Lasix today. On exam, patient is hemodynamically stable with abdominal distention and coarse breath sounds bilaterally. Patient is not in any respiratory distress. EKG showing ventricularly paced rhythm at heart rate of [78]. No sgarbossa criteria for STEMI. Lab work-up including BMP appears to be elevated. Patient received Lasix 40 mg with some improvement, patient continues to be short of breath, satting at 90% on room air. Chest x-ray showed cardiomegaly with mild pulmonary edema. BNP slightly elevated today at 1700 high as since prior admissions. Patient admitted to hospital for CHF exacerbation. Disposition: Admission Lab Data: Labs: Lab Results 10/02/21 10/02/21 16:45 16:45 WBC 11.2 10^3/uL H 10 ^3/uL (4.0-10.0) RBC 4.41 10^6/uL 10^6 /uL (4.1-5.3) Hgb 13.6 g/dL g/dL (11.7-16.6) Hct 40.9 % L % (42.0-52.0) MCV 92.7 fl fl (80-94) MCH 30.8 pg pg (28.0-34.0) MCHC 33.3 g/dL g/dL (30.0-36.0) RDW 13.7 % % (12.1-15.1) Plt Count 215 10^3/cmm 10^3 /cmm (130-400) MPV 10.6 fL H fL (7.4-10.4) Neut % (Auto) 65.1 % % Lymph % (Auto) 17.5 % % [facility] [place] [facility] % (Auto) 10.6 % % Eos % (Auto) 4.3 % % Baso % (Auto) 1.4 % % Neut # (Auto) 7.27 10^3/uL 10^3 /uL (1.8-7.7) Lymph # (Auto) 2.0 10^3/uL 10^3/ uL (0.8-4.8) [facility] [place] [facility] # (Auto) 1.2 10^3/uL H 10^ 3/uL (0.2-0.9) Eos # (Auto) 0.5 10^3/uL 10^3/ uL (0.0-0.8) Baso # (Auto) 0.2 10^3/uL H 10^ 3/uL (0.0-0.1) Nucleated RBC % (a uto) 0 % % Nucleated RBCs # 0.0 /100WBC /100W BC Sodium 126 mmol/L L mmol /L (136-145) Potassium 4.2 mmol/L mmol/L (3.5-5.1) Chloride 89 mmol/L L mmol/ L (98-107) Carbon Dioxide 27 mmol/L mmol/L (22-29) Anion Gap 14.2 (5-19) BUN 21 mg/dL mg/dL (8-23) Creatinine 1.3 mg/dL H mg/dL (0.7-1.2) GFR Calculation 54.9 mL/min L mL/ min (90-130) Glucose 329 mg/dL H mg/dL (65-115) Calculated Osmolal ity 278 mOsm/kg L mOs m/kg (285-295) Calcium 8.8 mg/dL mg/dL (8.5-10.5) NT-Pro-B Natriuret Pep 1795 pg/mL H pg/m L (0-125) Imaging Data^: Other Imaging: Radiologist's impression: [address] [id number] ReportSigned Patient: Negro Barron #: [id number]: [id number]#:[id number]/Sex: 66 / MADM Date: 10/02/21Loc: ERRoom/Bed:Attending Dr: Ordering Provider/Ordering MD: Ben Gaston MD Date of Service: 10/02/21 Procedure(s): XR chest 1V portable [id number] Accession Number(s): [id number] Report Number: [id number] PROCEDURE INFORMATION: Exam: XR Chest Exam date and time: 10/02/2021 3:39 PM Age: 66 years old Clinical indication: Pain; Chest pressure; Additional info: Dyspnea TECHNIQUE: Imaging protocol: XR of the chest. Views: 1 view. COMPARISON: CR XR chest 1V portable [id number] 06/05/2020 12:33 AM FINDINGS: Limitations: Study performed in the apical lordotic projection. Tubes, catheters and devices: Permanent pacemaker/AICD noted. Lungs: No consolidative pulmonary infiltrate noted. Pleural spaces: No pleural effusion. No pneumothorax. Heart/Mediastinum: No cardiomegaly. Bones/joints: Median sternotomy noted. XR/XR chest 1V portable [id number] IMPRESSION: 1. No consolidative pulmonary infiltrate noted. 2. There is no interval change from the prior examination. Radiation Dose CTDIVOL = (mGy): DLP = (mGy-cm) Dictated By:Mike Cervantes MDSigned By:Mike Cervantes MDSigned Date/Time:10/02/21 1800DD/ 1539 Discharge Plan Discharge Patient Disposition: Admitted As Inpatient Clinical Impression: Acute dyspnea, CHF exacerbation Condition: Stable Discharge Diet: Advance as tolerated Discharge Activity: Resume usual activity Coding Level of Care Code ED Knife Changer for Emiliano Fay
[2021-10-02 17:00] LABS: Basophils # 0.2 10^3/uL (0.0-0.1); Basophils % 1.4 %; Eosinophils # 0.5 10^3/uL (0.0-0.8); Eosinophils % 4.3 %; Hematocrit 40.9 % (42.0-52.0); Hemoglobin 13.6 g/dL (11.7-16.6); Lymphocytes % 17.5 %; Mean Corpuscular HGB Conc 33.3 g/dL (30.0-36.0); Mean Corpuscular Hemoglobin 30.8 pg (28.0-34.0); Mean Corpuscular Volume 92.7 fl (80-94); Mean Platelet Volume 10.6 fL (7.4-10.4); Monocytes # 1.2 10^3/uL (0.2-0.9); Monocytes % 10.6 %; Neutrophils # 7.27 10^3/uL (1.8-7.7); Neutrophils % 65.1 %; Nucleated Red Blood Cells % 0 %; Platelet Count 215 10^3/cmm (130-400); Red Blood Count 4.41 10^6/uL (4.1-5.3); Red Cell Distribution Width 13.7 % (12.1-15.1); White Blood Count 11.2 10^3/uL (4.0-10.0)
--- NOTE | 2021-10-02 17:32 | ECG_ITS ---
[facility] Test Date: 2021-10-02 Pat Name: Mike Barron Department: Room: Gender: Male Interpreter For The Deaf: : 1955 Requested By: Ben Gaston Order Number: [id number] Latrice MD: Ra Maxwell M.D. Measurements Intervals [place] Rate: 78 P: -19 [place]: 141 QRS: 263 QRSD: 146 T: 97 QT: 441 QTc: 505 Interpretive Statements ELECTRONIC VENTRICULAR PACEMAKER Compared to ECG 10/02/2021 15:24:42 No significant changes Electronically Signed On 10-03-2021 21:55:56 SINK CUTTER by Ra Maxwell M.D. [id number]
[2021-10-02 17:34] LABS: Blood Urea Nitrogen 21 mg/dL (8-23); Calcium 8.8 mg/dL (8.5-10.5); Carbon Dioxide 27 mmol/L (22-29); Chloride 89 mmol/L (98-107); Creatinine Clr Calc Pharmacy 64.2828; Glomerular Filtration Rate 54.9 mL/min (90-130); Glucose 329 mg/dL (65-115); NT Pro B Type Natriuretic Pept 1795 pg/mL (0-125); Osmolality Calculated 278 mOsm/kg (285-295); Sodium 126 mmol/L (136-145)
[2021-10-02 17:35] LABS: Anion Gap 14.2 (5-19); Potassium 4.2 mmol/L (3.5-5.1)
[2021-10-02] MEDS: acetaminophen 500 mg Tablet PO (18:09)
[2021-10-02] MEDS: NIFEdipine ER (24 hr) 30 mg Tablet PO (18:09)
[2021-10-02] MEDS: FUROsemide 10 mg/mL SDV 4mL 40 MG IVP (18:09)
--- NOTE | 2021-10-02 18:14 | ECG_ITS ---
[facility] Test Date: 2021-10-02 Pat Name: Mike Barron Department: Room: [facility] Gender: Male Belt Turner: : 1955 Requested By: Shadi Carmichael Order Number: [id number] Latrice MD: Ra Maxwell M.D. Measurements Intervals [place] Rate: 81 P: 48 [place]: 181 QRS: -90 QRSD: 142 T: 105 QT: 438 QTc: 509 Interpretive Statements ELECTRONIC VENTRICULAR PACEMAKER ABNORMAL RHYTHM ECG Compared to ECG 10/02/2021 15:24:42 No significant changes Electronically Signed On 10-03-2021 21:56:02 LOADER OPERATOR SUPERVISOR by Ra Maxwell M.D. [id number] f
--- NOTE | 2021-10-02 18:22 | P.HP_ITS ---
Providers/Chief Complaint Admitting Physician: Shadi Carmichael MD Chief Complaint: SOB, COUGH, FLUID BUILD UP, HX CHF History of Present Illness Mike Barron is a 66 year old male with a past medical history of ischemic cardiomyopathy with ejection fraction of 22%, ICD and pacemaker in place, history of CABG, history of CVA, history of type 2 diabetes mellitus, history of BPH, hyperlipidemia, COPD, hypertension, degenerative disc disease, who presents to [facility] due to shortness of breath. Patient tells me that he ran out of his Lasix medication, is not exactly sure how much he takes but he ran out of it. He tells me that normally he is from [place], has been traveling to see family, he was recently in [place], now he is in [place] to be with his daughter. He tells me that he is ejection fraction is down to 22%, and he takes Lasix, recently has been feeling more short of breath, with orthopnea, paroxysmal nocturnal dyspnea. No fevers, chills, nausea, vomiting, no known Covid exposure, no cough. Patient tells me that his [place], he is originally from [place], but he lives out in [place], he is recently in [place] to meet his son, when he also had a CHF exacerbation, he tells me that he he received Lasix and it took almost 13 L of fluid off of him, he got better, has not followed up with his student development dean in some time. Review of Systems Const: Denies: fever(s), chills, fatigue or malaise Eyes: Denies: change in vision or blurry vision ENMT: Denies: nasal congestion Card: Reports: dyspnea on exertion and orthopnea; Denies: chest pain, palpitations, irregular heart rhythm, edema, lightheadedness or pre-syncope Resp: Reports: dyspnea; Denies: productive cough, non-productive cough or wheezing GI: Denies: abdominal pain, nausea, vomiting, hematemesis, diarrhea, constipation, hematochezia or melena : Denies: flank pain, difficulty urinating, dysuria or urinary frequency Musc: Denies: neck pain or back pain Skin/Breast: Denies: rash Neuro: Denies: headache(s), dizziness or vertigo Psych: Reports: anxiety and depression Endo: Denies: polyuria [place]asper/Lymph: Denies: easy bruising Medications/Allergies Home Medications Medication Instructions Recorded Confirmed Last Taken Type atorvastatin 10 mg PO DAILY 10/02/21 10/02/21 10/01/21 History clopidogrel 75 mg PO DAILY 10/02/21 10/02/21 10/01/21 History diclofenac sodium 75 mg PO DAILY 10/02/21 10/02/21 10/01/21 History duloxetine 30 mg PO DAILY 10/02/21 10/02/21 10/01/21 History finasteride 5 mg PO DAILY 10/02/21 10/02/21 10/01/21 History furosemide 20 mg PO DAILY 10/02/21 10/02/21 10/01/21 History gabapentin 300 mg PO QID 10/02/21 10/02/21 10/01/21 History insulin detemir U-100 [Levemir 35 unit SUBCUT BID 10/02/21 10/02/21 10/01/21 History FlexTouch U-100 Insuln] insulin lispro [Humalog KwikPen 12 unit SUBCUT TID 10/02/21 10/02/21 Unknown History Insulin] levothyroxine 88 mcg PO DAILY 10/02/21 10/02/21 10/01/21 History metoprolol succinate 50 mg PO DAILY 10/02/21 10/02/21 10/01/21 History nitroglycerin 0.4 mg SUBLINGUAL PRN PRN 10/02/21 10/02/21 Unknown History spironolactone 25 mg PO DAILY 10/02/21 10/02/21 10/01/21 History tamsulosin 0.4 mg PO DAILY 10/02/21 10/02/21 10/01/21 History Allergies Allergy/AdvReac Type Severity Reaction Status Date / Time No Known Allergies Allergy Verified 06/04/20 20:38 PFSH Acute PFSH: Medical History (Updated 10/02/21 @ 18:27 by Shadi Carmichael MD) Ascending aortic aneurysm BPH (benign prostatic hyperplasia) CKD (chronic kidney disease) stage 3, GFR 30-59 ml/min Congestive heart failure COPD (chronic obstructive pulmonary disease) Coronary artery disease CVA (cerebral vascular accident) Degenerative disc disease DM type 2 (diabetes mellitus, type 2) Hyperlipidemia Hypertension Kidney mass Myocardial infarction Surgical History Hx of CABG S/P percutaneous transluminal angioplasty (AIRCRAFT REFUELLER) with stent placement Family History (Updated 10/02/21 @ 18:25 by Shadi Carmichael MD) Mother CAD (coronary artery disease) Father CAD (coronary artery disease) Social History (Updated 10/02/21 @ 18:25 by Shadi Carmichael MD) Smoking and tobacco status: never smoked Alcohol intake: never Substance/Drug Use: never Vitals/I&O/Wt Last Vital Signs Temp 97.6 F 10/02/21 16:53 Pulse 80 10/02/21 16:53 Resp 20 H 10/02/21 16:53 BP 188/111 10/02/21 16:53 Pulse Ox 90 10/02/21 16:53 Weight last 48 hrs Weight 109.769 kg Physical Exam Const: COMMON NORMALS: no acute distress and patient oriented x3 HENMT: COMMON NORMALS: normocephalic HEAD & SCALP: normocephalic Eye: COMMON NORMALS: Equal, round and reactive pupils present and EOMs intact bilaterally GENERAL EYE: appearance normal, both eyes and all related structures PUPIL: Yes Equal, round and reactive pupils present Neck/C-Spine: COMMON NORMALS: full ROM and no lymphadenopathy THYROID: Thyroid normal Lymph: LYMPHATIC: no lymphadenopathy noted Chest: OTHER: Right breast, inverted nipple Resp: COMMON NORMALS: normal respiratory effort, No retractions and No use of accessory muscles AUSCULTATION: crackles Cardio: COMMON NORMALS: regular rate, regular rhythm, S1 normal heart sound present, S2 normal heart sound present, No gallops present (Cardio), No clicks present (Cardio) and No murmurs present (Cardio) RATE: regular rate RHYTHM: regular rhythm HEART SOUNDS: S1 normal heart sound present and S2 normal heart sound present GI: COMMON NORMALS: Normal to inspection, nondistended, normoactive bowel sounds present, Soft to palpation, non-tender and No hepatosplenomegaly present PALPATION: Yes Soft to palpation and Yes No hepatosplenomegaly present Extremity: COMMON NORMALS: normal to inspection, full ROM and no pedal edema Neuro: COMMON NORMALS: patient oriented x3, CN's II-XII intact bilaterally, moves all extremities and no focal motor deficits Psych: COMMON NORMALS: mental status grossly normal, Normal thought process present and cooperative THOUGHT PROCESS: Normal thought process present Data : 10/02/21 16:45 10/02/21 16:45 A&P Assessment and plan (1) Acute on chronic clinical systolic heart failure: Acute systolic CHF exacerbation -History of EF of 25% -History of ICD placement Has forgot to take his medications Plan: -Admit to CSU -continue home Plavix, statin -Continue home metoprolol -Start Bumex 1 mg every 12 hours -Monitor urine output, fluid restrict 1500 cc -Lovenox for DVT prophylaxis -Patient is DNR/DNI -Patient does have a defibrillator in place, when asked what if his defibrilla tor was to go off, he tells me that let it smoke he is a [place] it is part of his process Type 2 diabetes mellitus, insulin-dependent, decrease Levemir to 20 twice daily, low-dose sliding scale History of CVA, continue Plavix, statin BPH, continue Flomax, finasteride CKD, creatinine 1.3, continue to monitor Hyponatremia, likely secondary to severe heart failure, continue to monitor Status: Acute (2) Acute dyspnea: Status: Acute (3) CHF exacerbation: Status: Acute (4) Hx of CABG: Status: Acute (5) BPH (benign prostatic hyperplasia): Status: Acute (6) Hyperlipidemia: Status: Acute (7) Degenerative disc disease: Status: Acute (8) CKD (chronic kidney disease) stage 3, GFR 30-59 ml/min: Status: Acute (9) DM type 2 (diabetes mellitus, type 2): Status: Acute (10) CVA (cerebral vascular accident): Status: Acute (11) COPD (chronic obstructive pulmonary disease): Status: Acute (12) Hypertension: Status: Acute Attestations Medical Necessity Statement*: Patient requires hospitalization, inpatient patient requires hospitalization, inpatient, greater than 2 midnights, for acute systolic CHF exacerbation Coding Level of Care Code Acute Cotton Ball Bagger for Emiliano Fay Diagnoses Acute on chronic clinical systolic heart failure I50.23 Acute dyspnea R06.00 CHF exacerbation I50.9 Hx of CABG Z95.1 BPH (benign prostatic hyperplasia) N40.0 Hyperlipidemia E78.5 Degenerative disc disease CKD (chronic kidney disease) stage 3, GFR 30-59 ml/min N18.3 DM type 2 (diabetes mellitus, type 2) E11.9 CVA (cerebral vascular accident) I63.9 COPD (chronic obstructive pulmonary disease) J44.9 Hypertension I10
--- NOTE | 2021-10-02 18:38 | PC.NURSE ---
Attempted to call report, advised by community chest officer there are no nurses anywhere at this time tali take report. Advised to call back at a later time. emmanuel Gomez RN advised.
--- NOTE | 2021-10-02 18:48 | PC.NURSE ---
Report called to floor, report given to EFRA Alcantara.
[2021-10-02 19:23] LABS: Troponin(5th) Baseline 28 ng/L (0-15)
[2021-10-02 19:29] LABS: Procalcitonin 0.11 ng/mL (0-0.5)
--- NOTE | 2021-10-02 21:07 | ECG_ITS ---
[facility] Test Date: 2021-10-02 Pat Name: Mike Barron Department: Room: 101 Gender: Male Triage Nurse: : 1955 Requested By: Shadi Carmichael Order Number: [id number] Latrice MD: Ra Maxwell M.D. Measurements Intervals [place] Rate: 80 P: 19 [place]: 133 QRS: 259 QRSD: 153 T: 102 QT: 452 QTc: 522 Interpretive Statements ELECTRONIC VENTRICULAR PACEMAKER Compared to ECG 10/02/2021 17:42:26 No significant changes Electronically Signed On 10-03-2021 21:59:19 ADJUNCT INSTRUCTOR CHEMISTRY by Ra Maxwell M.D. [email or web address] [email or web address] mississippi residential centerSqor Sportstogus va medical centerICONIX BRAND GROUP/store/OM/[id number]
[2021-10-02 22:05] LABS: Glucose Point of Care 446 mg/dL (70-110)
[2021-10-02] MEDS: insulin lispro 100 unit/1 mL SUBCUT (22:09)
[2021-10-02] MEDS: bumetanide 0.25 mg/mL SDV 4 mL 1 MG IVP (22:17)
[2021-10-02] MEDS: enoxaparin 40 mg/0.4 mL Syringe SUBCUT (22:19)
[2021-10-02] MEDS: spironolactone 25 mg Tablet 50 MG PO (22:20)
[2021-10-02] MEDS: gabapentin 300 mg Capsule PO (22:21)
[2021-10-02] MEDS: hyDRALAzine 10 mg Tablet PO (22:21)
[2021-10-02 22:32] LABS: Troponin 5 2HR 27.73 ng/L (0-15)
[2021-10-02 22:34] LABS: Troponin 5 2HR Delta -0.27 ABS# (0-10)
--- NOTE | 2021-10-02 23:36 | PC.NURSE ---
Patient refused to wear scd's. States that he has to urinate too much from receiving medication to do so and he doesn't want to bother with them.
[2021-10-03] VITALS (127 sets, daily range): BP systolic 99–167; BP diastolic 48–103; PULSE 75–88; RESP 9–36; TEMP 36.5–37; O2SAT 75–100
--- NOTE | 2021-10-03 00:08 | ECG_ITS ---
[facility] Test Date: 2021-10-03 Pat Name: Mike Barron Department: Room: 101 Gender: Male Promotions Assistant Sales Marketing: : 1955 Requested By: Shadi Carmichael Order Number: [id number] Latrice MD: Ra Maxwell M.D. Measurements Intervals [place] Rate: 78 P: 8 DC: 125 QRS: 260 QRSD: 157 T: 108 QT: 444 QTc: 509 Interpretive Statements ELECTRONIC VENTRICULAR PACEMAKER Compared to ECG 10/02/2021 22:09:31 No significant changes Electronically Signed On 10-03-2021 21:59:07 DISPATCHER REFINERY by Ra Maxwell M.D. [id number]
--- NOTE | 2021-10-03 01:11 | PC.NURSE ---
Patient had order for catheter placement in Emergency room that was not placed. Patient refused placement at this time. Refused SCD's and continues to take monitor leads and sp02 leads off. When reminded to keep them on he states that he had to woke up and does not want any of them attached to him. Patient educated on importance. Will continue to monitor.
[2021-10-03 01:13] LABS: Troponin 5 6HR 28.25 ng/L (0-15); Troponin 5 6HR Delta 0.25 ng/L (0-12)
--- NOTE | 2021-10-03 01:48 | PC.NURSE ---
Patient spo2 low, called Respiratory to evaluate for oxygen needs. Will continue to monitor.
[2021-10-03 04:51] LABS: Basophils # 0.2 10^3/uL (0.0-0.1); Basophils % 1.5 %; Eosinophils # 0.6 10^3/uL (0.0-0.8); Eosinophils % 4.9 %; Hematocrit 42.2 % (42.0-52.0); Lymphocytes # 1.7 10^3/uL (0.8-4.8); Lymphocytes % 14.2 %; Mean Corpuscular HGB Conc 33.2 g/dL (30.0-36.0); Mean Corpuscular Hemoglobin 30.7 pg (28.0-34.0); Mean Corpuscular Volume 92.5 fl (80-94); Mean Platelet Volume 10.2 fL (7.4-10.4); Monocytes # 1.3 10^3/uL (0.2-0.9); Monocytes % 11.1 %; Neutrophils # 8.05 10^3/uL (1.8-7.7); Neutrophils % 67.4 %; Nucleated Red Blood Cells % 0 %; Platelet Count 211 10^3/cmm (130-400); Red Blood Count 4.56 10^6/uL (4.1-5.3); Red Cell Distribution Width 13.6 % (12.1-15.1); White Blood Count 11.9 10^3/uL (4.0-10.0)
--- NOTE | 2021-10-03 05:32 | PC.NURSE ---
First EKG was performed in ed and was not taken off of worklist
[2021-10-03 05:34] LABS: Alanine Aminotransferase 20 U/L (0-41); Alkaline Phosphatase 91 IU/L (40-130); Anion Gap 13.6 (5-19); Aspartate Amino Transferase 13 U/L (0-40); Blood Urea Nitrogen 17 mg/dL (8-23); Carbon Dioxide 30 mmol/L (22-29); Chloride 95 mmol/L (98-107); Glomerular Filtration Rate 66.6 mL/min (90-130); Glucose 215 mg/dL (65-115); Osmolality Calculated 288 mOsm/kg (285-295); Phosphorus 3.1 mg/dL (2.5-4.5); Potassium 3.6 mmol/L (3.5-5.1); Sodium 135 mmol/L (136-145); Thyroid Stimulating Hormone 1.52 uIU/mL (0.27-4.20); Total Bilirubin 0.5 mg/dL (0.15-1.2)
[2021-10-03 06:25] LABS: Glucose Point of Care 257 mg/dL (70-110)
[2021-10-03 06:48] LABS: Estmated Average Glucose 252; Hemoglobin A1C 10.4 % (4.0-6.0)
[2021-10-03 06:56] LABS: NT Pro B Type Natriuretic Pept 2334 pg/mL (0-125)
[2021-10-03] MEDS: spironolactone 25 mg Tablet 50 MG PO (08:31)
[2021-10-03] MEDS: levothyroxine 88 mcg Tablet PO (08:31)
[2021-10-03] MEDS: finasteride 5 mg Tablet PO (08:31)
[2021-10-03] MEDS: metoprolol succinate ER (24 HR) 50 mg Tablet PO (08:31)
[2021-10-03] MEDS: atorvastatin 40 mg Tablet 20 MG PO (08:31)
[2021-10-03] MEDS: gabapentin 300 mg Capsule PO ×4 (08:31→21:15)
[2021-10-03] MEDS: hyDRALAzine 10 mg Tablet PO ×3 (08:31→21:15)
[2021-10-03] MEDS: tamsulosin 0.4 mg Capsule PO (08:32)
[2021-10-03] MEDS: clopidogrel 75 mg Tablet PO (08:32)
[2021-10-03] MEDS: duloxetine 30 mg Capsule PO (08:32)
[2021-10-03] MEDS: insulin lispro 100 unit/1 mL SUBCUT ×3 (08:32→21:07)
[2021-10-03] MEDS: bumetanide 0.25 mg/mL SDV 4 mL 1 MG IVP ×2 (09:14→21:16)
[2021-10-03] MEDS: potassium chloride ER 20 mEq Tablet 40 MEQ PO (09:50)
[2021-10-03] MEDS: metOLazone 5 MG Tablet 10 MG PO (09:50)
[2021-10-03 11:17] LABS: Glucose Point of Care 532 mg/dL (70-110)
[2021-10-03] MEDS: insulin lispro 100 unit/1 mL 20 UNIT SUBCUT (11:36)
--- NOTE | 2021-10-03 11:47 | PC.NURSE ---
Pt urinated on the floor He stated he drop the urinal.
[2021-10-03 12:29] LABS: Glucose Point of Care 484 mg/dL (70-110)
[2021-10-03] MEDS: insulin lispro 100 unit/1 mL 15 UNIT SUBCUT (12:48)
--- NOTE | 2021-10-03 13:23 | USR_ITS ---
PROCEDURE INFORMATION: Exam: US Abdomen; Limited Exam date and time: 10/03/2021 1:23 PM Age: 66 years old Clinical indication: Mass, lump, or swelling; Llq; Additional info: Abdominal wall abscess vs cellultiis, area of inuslin inejec TECHNIQUE: Imaging protocol: US abdomen. Real time ultrasound with image documentation. Limited exam focused on the region of clinical interest. COMPARISON: CT abdomen pelvis wo/w [id number] 06/05/2020 1:47 AM FINDINGS: Soft tissues: Tiny rounded anechoic region in the subcutaneous soft tissues of the left lower abdominal wall measuring 0.3 x 0.4 x 0.3 cm. No significant hyperemia around this region. US/US abdomen limited [id number] IMPRESSION: Nonspecific tiny cystic collection in the left lower abdominal wall measuring 0.3 x 0.4 x 0.3 cm. No significant surrounding hyperemia. Radiation Dose CTDIVOL = (mGy): DLP = (mGy-cm)
--- NOTE | 2021-10-03 14:15 | PC.NURSE ---
ultrasound in room
[2021-10-03 15:34] LABS: Glucose Point of Care 151 mg/dL (70-110)
--- NOTE | 2021-10-03 15:46 | PM.PN ---
Subjective Subjective: Interval history: Patient was seen this morning, he tells me that he is feeling better, he feels less short of breath, however he did not get a lot of sleep last night as he kept getting up in the middle the night to urinate, he does not really want a Mata catheter to be placed. He tells me that it is his goal to go to the hospital in, and continue his road trip, he is traveling across the country, he is having a local friend, [employer] for to his van so that he can live in it, he can cook out of it, he enjoys grilling, and traveling on the road, Vitals/I&O/Wt Last Vital Signs Temp 98.6 F 10/03/21 04:10 Pulse 84 10/03/21 14:11 Resp 24 H 10/03/21 14:11 BP 99/48 10/03/21 14:11 Pulse Ox 97 10/03/21 08:06 10/03/21 10/03/21 10/03/21 06:59 14:59 22:59 Intake Total 480 / 480 Output Total 2200 / 2200 Balance -1720 / -1720 Weight last 48 hrs Weight 109.769 kg Physical Exam Const: COMMON NORMALS: no acute distress and patient oriented x3 Resp: COMMON NORMALS: normal respiratory effort, No retractions, No use of accessory muscles and clear to auscultation bilaterally AUSCULTATION: clear to auscultation bilaterally Cardio: COMMON NORMALS: regular rate, regular rhythm, S1 normal heart sound present and S2 normal heart sound present RATE: regular rate RHYTHM: regular rhythm HEART SOUNDS: S1 normal heart sound present and S2 normal heart sound present GI: COMMON NORMALS: Normal to inspection, nondistended, normoactive bowel sounds present, Soft to palpation and non-tender PALPATION: Yes Soft to palpation Extremity: COMMON NORMALS: no pedal edema Neuro: COMMON NORMALS: patient oriented x3 Psych: COMMON NORMALS: mental status grossly normal Data : 10/03/21 04:34 10/03/21 04:34 A&P Assessment and plan (1) Acute on chronic clinical systolic heart failure: Acute systolic CHF exacerbation -History of EF of 25% -History of ICD placement Has forgot to take his medications Plan: -Admit to CSU -continue home Plavix, statin -Continue home metoprolol -Start Bumex 1 mg every 12 hours, continue home metoprolol -Cardiac echocardiogram LV systolic function is mildly reduced with EF of 45-50% Grade 1 diastolic dysfunction RV function is mildly reduced Compared to prior echocardiogram from 01/26/2019, no significant changes are noted -Monitor urine output, fluid restrict 1500 cc -Lovenox for DVT prophylaxis -Patient is DNR/DNI -Patient does have a defibrillator in place, when asked what if his defibrillator was to go off, he tells me that let it smoke he is a [place] it is part of his process Type 2 diabetes mellitus, insulin-dependent, Levemir 35 units twice daily, high-dose sliding scale, A1c 10.4 Non-ST elevation [place], likely supply demand ischemia from acute respiratory failure as above, continue Plavix, statin History of CVA, continue Plavix, statin BPH, continue Flomax, finasteride CKD, creatinine 1.1, continue to monitor Hyponatremia, likely secondary to severe heart failure, continue to monitor Abdominal wall cellulitis, has an area just below the umbilicus measuring 2 x 2 cm, round, erythematous, tender, represents a focal area of cellulitis where he injects his insulin, will start doxycycline Augmentin, ultrasound to evaluate for underlying abscess Status: Acute (2) Acute dyspnea: Status: Acute (3) CHF exacerbation: Status: Acute (4) Hx of CABG: Status: Acute (5) BPH (benign prostatic hyperplasia): Status: Acute (6) Hyperlipidemia: Status: Acute (7) Degenerative disc disease: Status: Acute (8) CKD (chronic kidney disease) stage 3, GFR 30-59 ml/min: Status: Acute (9) DM type 2 (diabetes mellitus, type 2): Status: Acute (10) CVA (cerebral vascular accident): Status: Acute (11) COPD (chronic obstructive pulmonary disease): Status: Acute (12) Hypertension: Status: Acute Attestations Medical Necessity Statement*: Patient requires hospitalization for acute on chronic systolic CHF exacerbation Coding Level of Care Code Acute Principal Scientist for [facility] Fwd Exam Detailed Diagnoses Acute on chronic clinical systolic heart failure I50.23 Acute dyspnea R06.00 CHF exacerbation I50.9 Hx of CABG Z95.1 BPH (benign prostatic hyperplasia) N40.0 Hyperlipidemia E78.5 Degenerative disc disease CKD (chronic kidney disease) stage 3, GFR 30-59 ml/min N18.3 DM type 2 (diabetes mellitus, type 2) E11.9 CVA (cerebral vascular accident) I63.9 COPD (chronic obstructive pulmonary disease) J44.9 Hypertension I10
[2021-10-03 16:13] LABS: Glucose Point of Care 140 mg/dL (70-110)
[2021-10-03] MEDS: amoxicillin-clav 875-125 mg Tablet 1 TAB PO (17:15)
[2021-10-03] MEDS: doxycycline 100 mg Tablet PO (17:15)
[2021-10-03 17:21] LABS: Glucose Point of Care 191 mg/dL (70-110)
[2021-10-03 19:55] LABS: Glucose Point of Care 356 mg/dL (70-110)
--- NOTE | 2021-10-03 21:07 | USCV_ITS ---
Mike Barron Age: 66 Gender: M : 1955 Exam Date: 10/03/2021 08:45 Ordering Phys: Shadi Carmichael MD Technologist: Anayeli Bustos Exam Location: [facility] [place] Indication: Shortness of breath BP: 115 / 63 HR: 83 Rhythm: Other Technical Quality: Technically difficult study MEASUREMENTS (Male / Female) Normal Values 2D ECHO LV Diastolic Diameter PLAX 4.5 cm 4.2 - 5.9 / 3.9 - 5.3 cm LV Systolic Diameter PLAX 3.3 cm LV Chamber Size 4.4 cm IVS Diastolic Thickness 1.0 cm 0.6 - 1.0 / 0.6 - 0.9 cm IVS Systolic Thickness 1.9 cm LVPW Diastolic Thickness 1.0 cm 0.6 - 1.0 / 0.6 - 0.9 cm LVPW Systolic Thickness 1.1 cm RV Chamber Size 2.6 cm LVOT Diameter 2.0 cm LV Ejection Fraction 2D Teich 55.0 % LA Diameter 4.7 cm LA Width 3.5 cm LA Height 5.7 cm RA Width 3.0 cm RA Height 5.0 cm Aorta at Sinotubular Diameter 2.5 cm M-MODE LV Diastolic Diameter MM 4.7 cm 4.2 - 5.9 / 3.9 - 5.3 cm LV Systolic Diameter MM 3.2 cm LV Ejection Fraction MM Teich 58.9 % IVS Diastolic Thickness MM 2.2 cm 0.6 - 1.0 / 0.6 - 0.9 cm IVS Systolic Thickness MM 2.0 cm LVPW Diastolic Thickness MM 1.5 cm 0.6 - 1.0 / 0.6 - 0.9 cm LVPW Systolic Thickness MM 1.6 cm Aortic Annulus Diameter 3.5 cm LA Ao Ratio MM 1.6 DOPPLER AV Peak Velocity 121.0 cm/s LVOT Peak Velocity 99.0 cm/s AV Area Cont Eq vti 3.1 cm squared AV Area Cont Eq pk 2.5 cm squared MV Area PHT 5.0 cm squared Mitral E to A Ratio 0.8 MV E' Velocity 46.0 cm/s Mitral E to MV E' Ratio 10.1 Mitral E to LV E' Lateral Ratio 10.5 Mitral E to LV E' Septal Ratio 9.7 TV Peak E Velocity 83.0 cm/s Right Atrial Pressure 3.0 mmHg PV Peak Velocity 98.0 cm/s RV Acceleration Time 0.1 s RV Ejection Time 0.3 s RV AcT/ET 0.3 FINDINGS Left Ventricle Normal left ventricular size. LV systolic function is mildly reduced with EF of 45-50%. Regional wall abnormalities cannot be assessed because of poor visualization. Grade 1 diastolic dysfunction Right Ventricle The right ventricle is normal in size. RV function is mildly decreased. Possible pacemaker wire noted Right Atrium Not well visualized Left Atrium The left atrium is normal in size. Mitral Valve Thickened mitral valve without significant stenosis or prolapse. There is no mitral regurgitation. Aortic Valve Thickened aortic valve without significant stenosis. There is no aortic regurgitation. Tricuspid Valve Structurally normal tricuspid valve without significant stenosis or regurgitation. Insufficient TR jet to calculate RVSP Pulmonic Valve Not well visualized Pericardium Normal pericardium without effusion. Aorta Normal ascending aorta dimension. CONCLUSIONS LV systolic function is mildly reduced with EF of 45-50% Grade 1 diastolic dysfunction RV function is mildly reduced Compared to prior echocardiogram from 01/26/2019, no significant changes are noted Ra Maxwell MD (Electronically Signed) Final Date: 03 October 2021 11:44 S
[2021-10-03] MEDS: enoxaparin 40 mg/0.4 mL Syringe SUBCUT (21:15)
[2021-10-04] VITALS (76 sets, daily range): BP systolic 116–137; BP diastolic 59–87; PULSE 67–84; RESP 0–25; TEMP 36.6–36.9; O2SAT 91–98
[2021-10-04 04:01] LABS: Basophils # 0.2 10^3/uL (0.0-0.1); Basophils % 1.6 %; Eosinophils # 0.5 10^3/uL (0.0-0.8); Eosinophils % 5.2 %; Hematocrit 43.5 % (42.0-52.0); Hemoglobin 14.6 g/dL (11.7-16.6); Lymphocytes # 2.2 10^3/uL (0.8-4.8); Lymphocytes % 20.8 %; Mean Corpuscular HGB Conc 33.6 g/dL (30.0-36.0); Mean Corpuscular Hemoglobin 31.3 pg (28.0-34.0); Mean Corpuscular Volume 93.3 fl (80-94); Mean Platelet Volume 10.6 fL (7.4-10.4); Monocytes # 1.3 10^3/uL (0.2-0.9); Monocytes % 12.5 %; Neutrophils # 6.11 10^3/uL (1.8-7.7); Neutrophils % 58.8 %; Nucleated Red Blood Cells % 0 %; Platelet Count 200 10^3/cmm (130-400); Red Blood Count 4.66 10^6/uL (4.1-5.3); Red Cell Distribution Width 13.5 % (12.1-15.1); White Blood Count 10.4 10^3/uL (4.0-10.0)
[2021-10-04 04:18] LABS: Alanine Aminotransferase 18 U/L (0-41); Alkaline Phosphatase 87 IU/L (40-130); Aspartate Amino Transferase 14 U/L (0-40); Blood Urea Nitrogen 28 mg/dL (8-23); C Reactive Protein 15.4 mg/L (0.0-4.9); Calcium 9.1 mg/dL (8.5-10.5); Carbon Dioxide 30 mmol/L (22-29); Chloride 91 mmol/L (98-107); Globulin 2.8 g/dL (1.3-4.6); Glomerular Filtration Rate 50.4 mL/min (90-130); Glucose 164 mg/dL (65-115); Magnesium 2.1 mg/dL (1.7-2.3); Osmolality Calculated 283 mOsm/kg (285-295); Sodium 132 mmol/L (136-145); Total Bilirubin 0.4 mg/dL (0.15-1.2); Total Protein 6.8 g/dL (6.6-8.7)
[2021-10-04 04:19] LABS: Anion Gap 14.3 (5-19); Potassium 3.3 mmol/L (3.5-5.1)
[2021-10-04 04:39] LABS: NT Pro B Type Natriuretic Pept 1073 pg/mL (0-125); Procalcitonin 0.14 ng/mL (0-0.5)
--- NOTE | 2021-10-04 07:00 | PC.NURSE ---
Pt lying in bed resting with eyes closed. Resp even and non-labored no distress or sob noted. O2 at 2Lpm via NC. Pt had no s/s of pain or discomfort at the present time. No needs voiced. Call light in reach. Will cont to monitor.
--- NOTE | 2021-10-04 07:18 | PC.NURSE ---
Frequent safety and comfort rounds continue. Orders and/or nursing care completed as indicated. Patient monitored for response to intervention and treatment lasix(s). Education provided includes not stopping medications at home that will cause patient to have fluid build up. Patient and/or hospital insurance representative states he will try harder to be more compliant. Will continue to monitor.
[2021-10-04 07:28] LABS: Glucose Point of Care 219 mg/dL (70-110)
[2021-10-04] MEDS: metoprolol succinate ER (24 HR) 50 mg Tablet PO (08:48)
[2021-10-04] MEDS: levothyroxine 88 mcg Tablet PO (08:49)
[2021-10-04] MEDS: spironolactone 25 mg Tablet 50 MG PO (08:49)
[2021-10-04] MEDS: doxycycline 100 mg Tablet PO ×2 (08:49→17:40)
[2021-10-04] MEDS: finasteride 5 mg Tablet PO (08:49)
[2021-10-04] MEDS: duloxetine 30 mg Capsule PO (08:49)
[2021-10-04] MEDS: amoxicillin-clav 875-125 mg Tablet 1 TAB PO ×2 (08:49→17:40)
[2021-10-04] MEDS: clopidogrel 75 mg Tablet PO (08:50)
[2021-10-04] MEDS: gabapentin 300 mg Capsule PO ×4 (08:50→21:15)
[2021-10-04] MEDS: atorvastatin 40 mg Tablet 20 MG PO (08:50)
[2021-10-04] MEDS: tamsulosin 0.4 mg Capsule PO (08:50)
[2021-10-04] MEDS: hyDRALAzine 10 mg Tablet PO ×3 (08:50→21:29)
[2021-10-04] MEDS: potassium chloride ER 20 mEq Tablet 40 MEQ PO (08:51)
[2021-10-04] MEDS: insulin lispro 100 unit/1 mL SUBCUT ×4 (08:52→21:20)
[2021-10-04] MEDS: bumetanide 0.25 mg/mL SDV 4 mL 1 MG IVP ×2 (08:52→21:17)
[2021-10-04] MEDS: morphine 4 mg/mL SDV 1 mL 1 MG IVP (08:53)
--- NOTE | 2021-10-04 09:36 | PC.CHAP ---
Pastoral Care Encounter/Spiritual Assessment Type of Contact [] Declined industrial/organizational psychologist visit [] Patient/Family/Request visit [] Outpatient visit [] Follow-up visit [] Physician referral [] Code/Alert [x] Routine visit [] Staff referral [] Actively dying [] Patient sleeping [] Family support [] [] Out of room [] Palliative care [] [] Receiving care in room [] Pre-surgical visit [] Trauma [] Long length of stay [] ICU visit [] Other: Relational/Emotional Strength [] Patient feels connected with others/family/visitors/staff [] Distress [] Loneliness/isolation [] Abandonment Spirituality of Patient [x] Person of Estephanie [x] Attends Restorationist of their Estephanie [x] Believes in Prayer [] Reads Bible or Church materials [] There are Spiritual issues to be addressed Hotel Reservationist Interventions [x] Prayer [x] Active listening [x] Non-anxious presence [x] Spiritual/emotional support [] Crisis/trauma care [] Spiritual counseling [] Bereavement support [] Provided bereavement packet [] Provided Bible/devotional materials [] Provided toy/stuffed animal, coloring book to patient or family member [] Provided Communion [] Anointing/[place] [] Salvation [x] Completed spiritual assessment [] Other: Impact on Illness or Injury [] Angry [] Fearful [] Anxious [] Often cries [] Exhaustion [] Unable to work [] Unable to attend taoist [] Unable to walk/stand [] Unable to read [] Unable to drive [] Unable to eat/drink [] Unable to sleep [] Unable to be with family [] Patient intubated [] Other: Summary received pain meds feeling better... industrial/organizational psychologist was spoken over by the patient.. Time spent with patient 15 min
[2021-10-04 11:09] LABS: Glucose Point of Care 421 mg/dL (70-110)
[2021-10-04 16:37] LABS: Glucose Point of Care 160 mg/dL (70-110)
--- NOTE | 2021-10-04 19:02 | P.PN_ITS ---
Subjective Subjective: Interval history: He reports that he is gradually improving. Has been urinating quite about and has noticed that his breathing has been getting better. Originally reports having some orthopnea which has improved. Vitals/I&O/Wt Last Vital Signs Temp 98 F 10/04/21 12:00 Pulse 78 10/04/21 16:00 Resp 15 10/04/21 16:00 BP 116/67 10/04/21 16:00 Pulse Ox 96 10/04/21 16:00 10/04/21 10/04/21 10/04/21 06:59 14:59 22:59 Intake Total 50 / 1350 949 / 949 Output Total 1700 / 5700 1000 / 1000 Balance -1650 / -4350 -51 / -51 Weight last 48 hrs Weight 109.769 kg Physical Exam Const: COMMON NORMALS: no acute distress and patient oriented x3 NUTRITIONAL APPEARANCE: overweight HENMT: COMMON NORMALS: oropharynx normal Neck/C-Spine: OTHER: Cannot assess JVD due to very thick neck. Resp: COMMON NORMALS: normal respiratory effort and clear to auscultation bilaterally AUSCULTATION: clear to auscultation bilaterally Cardio: COMMON NORMALS: regular rhythm, S1 normal heart sound present, S2 normal heart sound present and No murmurs present (Cardio) RHYTHM: regular rhythm HEART SOUNDS: S1 normal heart sound present and S2 normal heart sound present GI: COMMON NORMALS: Normal to inspection, nondistended, normoactive bowel sounds present, Soft to palpation and non-tender PALPATION: Yes Soft to pal pation OTHER: 1+ pitting edema at the flanks. Large abdomen, soft to palpation. Extremity: COMMON NORMALS: no joint enlargement and no pedal edema Neuro: COMMON NORMALS: patient oriented x3 and moves all extremities Skin: COMMON NORMALS: no rashes or lesions noted GENERAL SKIN EXAM: no rashes or lesions noted Data : 10/04/21 03:12 10/04/21 03:12 A&P Assessment and plan (1) Acute on chronic clinical systolic heart failure: Breathing gradually improving, although is still hypoxic. This appears to be new hypoxia, previously not requiring any oxygen. Continues improving with diuresis. Repeat chest x-ray. Continue bumetanide. Monitor I&O, renal function. Noted some worsening creatinine again up to 1.4. Continue fluid restriction. Replace hypokalemia. We will have to inquire with him whether he has had a sleep study in the past. If not would benefit from 1. Acute systolic CHF exacerbation -History of EF of 25% -History of ICD placement Has forgot to take his medications -Cardiac echocardiogram LV systolic function is mildly reduced with EF of 45-50% Grade 1 diastolic dysfunction RV function is mildly reduced Compared to prior echocardiogram from 01/26/2019, no significant changes are noted -Lovenox for DVT prophylaxis -Patient is DNR/DNI -Patient does have a defibrillator in place Status: Acute (2) Acute dyspnea: He is empirically on antibiotic as well due to cellulitis, and possible pneumonia. Status: Acute (3) CHF exacerbation: Status: Acute (4) Hx of CABG: Status: Acute (5) BPH (benign prostatic hyperplasia): Status: Acute (6) Hyperlipidemia: Status: Acute (7) Degenerative disc disease: Status: Acute (8) CKD (chronic kidney disease) stage 3, GFR 30-59 ml/min: Status: Acute (9) DM type 2 (diabetes mellitus, type 2): Status: Acute (10) CVA (cerebral vascular accident): Status: Acute (11) COPD (chronic obstructive pulmonary disease): Status: Acute (12) Hypertension: Status: Acute Additional A&P Information Type 2 diabetes mellitus, insulin-dependent, Levemir 35 units twice daily, high- dose sliding scale, A1c 10.4 Non-ST elevation [place], likely supply demand ischemia from acute respiratory failure as above, continue Plavix, statin History of CVA, continue Plavix, statin BPH, continue Flomax, finasteride CKD, creatinine 1.4, continue to monitor Hyponatremia, likely secondary to severe heart failure, continue to monitor Abdominal wall cellulitis, has an area just below the umbilicus measuring 2 x 2 cm, round, erythematous, tender, represents a focal area of cellulitis where he injects his insulin, continue doxycycline Augmentin, ultrasound With nonspecific tiny cystic collection in abdominal wall, 0.3 x 0.4 x 0.3 cm. No surrounding hyperemia. Attestations Medical Necessity Statement*: Continue admission for cyst management of acute exacerbation of systolic CHF. 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
[2021-10-04 20:31] LABS: Glucose Point of Care 345 mg/dL (70-110)
[2021-10-04] MEDS: enoxaparin 40 mg/0.4 mL Syringe SUBCUT (21:15)
[2021-10-04] MEDS: potassium chloride ER 20 mEq Tablet PO (21:16)
[2021-10-05] VITALS (11 sets, daily range): BP systolic 117–149; BP diastolic 59–84; PULSE 74–96; RESP 14–19; TEMP 36.6–36.8; O2SAT 93–98
--- NOTE | 2021-10-05 00:56 | PC.NURSE ---
Patient sleeping in bed wearing cpap. Bed low, call agarwal in reach. Will monitor.
[2021-10-05 04:00] LABS: Basophils # 0.2 10^3/uL (0.0-0.1); Basophils % 1.6 %; Eosinophils # 0.7 10^3/uL (0.0-0.8); Eosinophils % 6.3 %; Hematocrit 42.5 % (42.0-52.0); Hemoglobin 14.1 g/dL (11.7-16.6); Lymphocytes # 2.4 10^3/uL (0.8-4.8); Lymphocytes % 21.5 %; Mean Corpuscular HGB Conc 33.2 g/dL (30.0-36.0); Mean Corpuscular Hemoglobin 30.5 pg (28.0-34.0); Monocytes # 1.3 10^3/uL (0.2-0.9); Neutrophils # 6.34 10^3/uL (1.8-7.7); Neutrophils % 57.5 %; Nucleated Red Blood Cells % 0 %; Platelet Count 213 10^3/cmm (130-400); Red Blood Count 4.62 10^6/uL (4.1-5.3); Red Cell Distribution Width 13.3 % (12.1-15.1)
[2021-10-05 04:34] LABS: Alanine Aminotransferase 18 U/L (0-41); Albumin Level 3.8 g/dL (3.5-5.2); Alkaline Phosphatase 87 IU/L (40-130); Aspartate Amino Transferase 13 U/L (0-40); Blood Urea Nitrogen 42 mg/dL (8-23); C Reactive Protein 11.8 mg/L (0.0-4.9); Calcium 9.3 mg/dL (8.5-10.5); Carbon Dioxide 29 mmol/L (22-29); Chloride 91 mmol/L (98-107); Globulin 2.8 g/dL (1.3-4.6); Glomerular Filtration Rate 37.7 mL/min (90-130); Glucose 192 mg/dL (65-115); Magnesium 2.3 mg/dL (1.7-2.3); Osmolality Calculated 288 mOsm/kg (285-295); Phosphorus 4.6 mg/dL (2.5-4.5); Sodium 131 mmol/L (136-145); Total Bilirubin 0.4 mg/dL (0.15-1.2); Total Protein 6.6 g/dL (6.6-8.7)
[2021-10-05 04:37] LABS: NT Pro B Type Natriuretic Pept 351 pg/mL (0-125); Procalcitonin 0.16 ng/mL (0-0.5)
--- NOTE | 2021-10-05 06:00 | XR_ITS ---
WS: [id number] PORTABLE CHEST HISTORY: Hypoxia COMPARISON: 10/02/2021 LEFT subclavian pacer is unchanged. Median sternotomy wires. Lung volumes are decreased with slight elevation of the RIGHT diaphragm. No consolidations or pneumon ia. No pleural effusion or pneumothorax. Cardiac size: Normal. Mediastinum/Aorta: Mild atherosclerosis aorta. No osseous abnormality seen. XR/XR chest 1V portable 25125 IMPRESSION: 1. Decreased lung volumes with no pneumonia. 2. Mild atherosclerosis aorta.
--- NOTE | 2021-10-05 06:28 | PC.NURSE ---
Frequent safety and comfort rounds continue. Orders and/or nursing care completed as indicated. Patient monitored for response to intervention and treatment of bumex. Education provided includes recording of all urine output. Patient and/or brand representative verbalized understanding. Will continue to monitor.
[2021-10-05 06:38] LABS: Glucose Point of Care 234 mg/dL (70-110)
[2021-10-05] MEDS: finasteride 5 mg Tablet PO (08:48)
[2021-10-05] MEDS: insulin lispro 100 unit/1 mL SUBCUT ×4 (08:48→22:04)
[2021-10-05] MEDS: levothyroxine 88 mcg Tablet PO (08:48)
[2021-10-05] MEDS: duloxetine 30 mg Capsule PO (08:49)
[2021-10-05] MEDS: bumetanide 0.25 mg/mL SDV 4 mL 1 MG IVP (08:49)
[2021-10-05] MEDS: hyDRALAzine 10 mg Tablet PO ×3 (08:49→22:11)
[2021-10-05] MEDS: amoxicillin-clav 875-125 mg Tablet 1 TAB PO ×2 (08:51→17:00)
[2021-10-05] MEDS: atorvastatin 40 mg Tablet 20 MG PO (08:51)
[2021-10-05] MEDS: doxycycline 100 mg Tablet PO ×2 (08:51→17:00)
[2021-10-05] MEDS: spironolactone 25 mg Tablet 50 MG PO (08:51)
[2021-10-05] MEDS: clopidogrel 75 mg Tablet PO (08:52)
[2021-10-05] MEDS: potassium chloride ER 20 mEq Tablet 40 MEQ PO (08:52)
[2021-10-05] MEDS: tamsulosin 0.4 mg Capsule PO (08:52)
[2021-10-05] MEDS: gabapentin 300 mg Capsule PO ×4 (08:53→22:11)
[2021-10-05] MEDS: metoprolol succinate ER (24 HR) 50 mg Tablet PO (08:53)
--- NOTE | 2021-10-05 09:49 | PC.SOCIAL ---
IMM Update PG. 2 of IMM updated and reviewed with patient, who verbalized understanding. Initialed, dated, and timed. Copy provided to patient and placed in chart.
[2021-10-05 11:17] LABS: Glucose Point of Care 399 mg/dL (70-110)
[2021-10-05 16:51] LABS: Glucose Point of Care 245 mg/dL (70-110)
[2021-10-05] MEDS: acetaminophen 325 mg Tablet 650 MG PO (16:57)
--- NOTE | 2021-10-05 19:35 | P.PN_ITS ---
Subjective Subjective: Interval history: He is doing about the same. Discussed with him oxygen requirement has decreased to 2.5 L, he is still been needing oxygen. He has been coughing, less so today. Discussed with him results of initial chest x-ray, with concern of possible pneumonia, however, discussed repeat chest x-ray without evidence of pneumonia, with him also remained afebrile, although with some pleuritic psychosis. Procalcitonin repeatedly normal. Discussed with him possibility of viral pneumonia which is improving. Discussed with him worsening renal function, as per discussion with holding additional Lasix, will reassess renal function tomorrow. Vitals/I&O/Wt Last Vital Signs Temp 98 F 10/05/21 19:19 Pulse 77 10/05/21 19:19 Resp 14 10/05/21 19:19 BP 123/59 10/05/21 19:19 Pulse Ox 93 10/05/21 19:19 10/05/21 10/05/21 10/05/21 06:59 14:59 22:59 Intake Total 240 / 1429 400 / 400 650 / 1050 Output Total 400 / 1750 1000 / 1000 1100 / 2100 Balance -160 / -321 -600 / -600 -450 / -1050 Physical Exam Const: COMMON NORMALS: no acute distress and patient oriented x3 NUTRITIONAL APPEARANCE: overweight HENMT: COMMON NORMALS: oropharynx normal Neck/C-Spine: OTHER: Cannot assess JVD due to very thick neck. Resp: COMMON NORMALS: normal respiratory effort and clear to auscultation bilaterally AUSCULTATION: clear to auscultation bilaterally Cardio: COMMON NORMALS: regular rhythm, S1 normal heart sound present, S2 normal heart sound present and No murmurs present (Cardio) RHYTHM: regular rhythm HEART SOUNDS: S1 normal heart sound present and S2 normal heart sound present GI: COMMON NORMALS: Normal to inspection, nondistended, normoactive bowel sounds present, Soft to palpation and non-tender PALPATION: Yes Soft to palpation OTHER: Large abdomen, soft to palpation. Extremity: COMMON NORMALS: no joint enlargement and no pedal edema Neuro: COMMON NORMALS: patient oriented x3 and moves all extremities Skin: COMMON NORMALS: no rashes or lesions noted GENERAL SKIN EXAM: no rashes or lesions noted Data : 10/05/21 03:50 10/05/21 03:50 A&P Assessment and plan (1) Acute on chronic clinical systolic heart failure: As per discussion with holding additional diuretics at this time due to worsening renal function. Reassessment of function. Overall volume status patient improved. This point he still requiring some oxygen. He has been cough ing for discussed with him as per above formulation chest x-ray concerning for possible pneumonia, although this appears to have resolved on the chest x-ray today. He has been coughing less. Afebrile. Some prominent neck cytosis. Discussed with him possible additional superimposed viral pneumonia. Overall he is gradual improvement. Hold Lasix. Reassess renal function only. Monitor I&O. Acute systolic CHF exacerbation -History of EF of 25% -History of ICD placement Has forgot to take his medications -Cardiac echocardiogram LV systolic function is mildly reduced with EF of 45-50% Grade 1 diastolic dysfunction RV function is mildly reduced Compared to prior echocardiogram from 01/26/2019, no significant changes are noted -Lovenox for DVT prophylaxis -Patient is DNR/DNI -Patient does have a defibrillator in place Status: Acute (2) Acute dyspnea: As per discussion with him, with possible pneumonia on presentation, but family pressure resolved on current chest x-ray. He has been coughing less. Has some oxytocin which is improving. Afebrile. Procalcitonin normal. Possible additional superimposed viral pneumonia which appears to be improving. For now hold off antibiotics. Reassess his condition tomorrow. Diuretics on hold due to worsening renal function. Reassess condition tomorrow, and overall continues to improve, possibly may be nearing ability to discharge. He states that he is planning to stay in the area follow-up. Discussed with him we want him to follow-up with a primary provider and her bodily injury adjuster. He will be requesting with case management for some assistance finding housing. Status: Acute (3) CHF exacerbation: Status: Acute (4) Hx of CABG: Status: Acute (5) BPH (benign prostatic hyperplasia): Status: Acute (6) Hyperlipidemia: Status: Acute (7) Degenerative disc disease: Status: Acute (8) CKD (chronic kidney disease) stage 3, GFR 30-59 ml/min: Status: Acute (9) DM type 2 (diabetes mellitus, type 2): Status: Acute (10) CVA (cerebral vascular accident): Status: Acute (11) COPD (chronic obstructive pulmonary disease): Status: Acute (12) Hypertension: Status: Acute (13) SKUH (obstructive sleep apnea): Reports was diagnosed with sleep apnea may be 4-5 years ago with a sleep study, however, has not worn CPAP and it was taken away. Reports his sleep apnea was pretty severe based on study. Discussed with him untreated sleep apnea may be contributing to his symptoms, including pulmonary edema, as well as arrhythmias, hypertension, which he states he realizes is a number of issues that he has going on. He would be willing to repeat sleep study again, for which he may be referred on outpatient basis. Status: Acute (14) Acute kidney injury superimposed on CKD: Creatinine up to 1.8. Hold further diuresis for now. Status: Acute Additional A&P Information Type 2 diabetes mellitus, insulin-dependent, Levemir 35 units twice daily, high- dose sliding scale, A1c 10.4 Non-ST elevation [place], likely supply demand ischemia from acute respiratory failure as above, continue Plavix, statin History of CVA, continue Plavix, statin BPH, continue Flomax, finasteride CKD Hyponatremia, likely secondary to severe heart failure, continue to monitor Abdominal wall cellulitis, has an area just below the umbilicus measuring 2 x 2 cm, round, erythematous, tender, represents a focal area of cellulitis where he injects his insulin, continue doxycycline Augmentin, ultrasound With nonspecific tiny cystic collection in abdominal wall, 0.3 x 0.4 x 0.3 cm. No surrounding hyperemia. Attestations Medical Necessity Statement*: Continue admission for cyst management of new hypoxia, CHF exacerbation, in setting of worsening renal function. Coding Level of Care Code Acute Bobbin Winder Tender for g Fwd Diagnoses Acute on chronic clinical systolic heart failure I50.23 Acute dyspnea R06.00 CHF exacerbation I50.9 Hx of CABG Z95.1 BPH (benign prostatic hyperplasia) N40.0 Hyperlipidemia E78.5 Degenerative disc disease CKD (chronic kidney disease) stage 3, GFR 30-59 ml/min N18.3 DM type 2 (diabetes mellitus, type 2) E11.9 CVA (cerebral vascular accident) I63.9 COPD (chronic obstructive pulmonary disease) J44.9 Hypertension I10 SUKH (obstructive sleep apnea) G47.33 Acute kidney injury superimposed on CKD N17.9; N18.9
[2021-10-05 20:47] LABS: Glucose Point of Care 382 mg/dL (70-110)
[2021-10-05] MEDS: enoxaparin 40 mg/0.4 mL Syringe SUBCUT (22:10)
[2021-10-06] VITALS (12 sets, daily range): BP systolic 110–128; BP diastolic 58–68; PULSE 72–85; RESP 18–21; TEMP 36.4–36.8; O2SAT 86–97
[2021-10-06 04:02] LABS: Basophils # 0.1 10^3/uL (0.0-0.1); Basophils % 1.5 %; Eosinophils # 0.5 10^3/uL (0.0-0.8); Eosinophils % 5.7 %; Hematocrit 44.6 % (42.0-52.0); Hemoglobin 14.7 g/dL (11.7-16.6); Lymphocytes # 2.1 10^3/uL (0.8-4.8); Lymphocytes % 22.2 %; Mean Corpuscular Hemoglobin 30.6 pg (28.0-34.0); Mean Corpuscular Volume 92.7 fl (80-94); Mean Platelet Volume 10.3 fL (7.4-10.4); Monocytes # 1.2 10^3/uL (0.2-0.9); Monocytes % 13.3 %; Neutrophils # 5.17 10^3/uL (1.8-7.7); Neutrophils % 56.2 %; Nucleated Red Blood Cells % 0 %; Platelet Count 234 10^3/cmm (130-400); Red Blood Count 4.81 10^6/uL (4.1-5.3); Red Cell Distribution Width 13.2 % (12.1-15.1); White Blood Count 9.2 10^3/uL (4.0-10.0)
[2021-10-06 04:35] LABS: Alanine Aminotransferase 18 U/L (0-41); Alkaline Phosphatase 95 IU/L (40-130); Aspartate Amino Transferase 11 U/L (0-40); Blood Urea Nitrogen 42 mg/dL (8-23); C Reactive Protein 7.7 mg/L (0.0-4.9); Calcium 9.4 mg/dL (8.5-10.5); Carbon Dioxide 29 mmol/L (22-29); Chloride 93 mmol/L (98-107); Globulin 2.9 g/dL (1.3-4.6); Glomerular Filtration Rate 40.3 mL/min (90-130); Glucose 235 mg/dL (65-115); Osmolality Calculated 292 mOsm/kg (285-295); Sodium 132 mmol/L (136-145); Total Bilirubin 0.3 mg/dL (0.15-1.2); Total Protein 6.9 g/dL (6.6-8.7)
[2021-10-06 04:36] LABS: NT Pro B Type Natriuretic Pept 324 pg/mL (0-125); Procalcitonin 0.15 ng/mL (0-0.5)
[2021-10-06 06:37] LABS: Glucose Point of Care 230 mg/dL (70-110)
[2021-10-06] MEDS: insulin lispro 100 unit/1 mL SUBCUT ×3 (07:38→17:34)
[2021-10-06] MEDS: acetaminophen 325 mg Tablet 650 MG PO (07:38)
[2021-10-06] MEDS: doxycycline 100 mg Tablet PO ×2 (08:33→17:34)
[2021-10-06] MEDS: potassium chloride ER 20 mEq Tablet 40 MEQ PO (08:33)
[2021-10-06] MEDS: spironolactone 25 mg Tablet 50 MG PO (08:33)
[2021-10-06] MEDS: hyDRALAzine 10 mg Tablet PO (08:33)
[2021-10-06] MEDS: gabapentin 300 mg Capsule PO ×3 (08:33→17:34)
[2021-10-06] MEDS: finasteride 5 mg Tablet PO (08:33)
[2021-10-06] MEDS: amoxicillin-clav 875-125 mg Tablet 1 TAB PO ×2 (08:33→17:34)
[2021-10-06] MEDS: clopidogrel 75 mg Tablet PO (08:34)
[2021-10-06] MEDS: duloxetine 30 mg Capsule PO (08:34)
[2021-10-06] MEDS: levothyroxine 88 mcg Tablet PO (08:34)
[2021-10-06] MEDS: atorvastatin 40 mg Tablet 20 MG PO (08:34)
[2021-10-06] MEDS: tamsulosin 0.4 mg Capsule PO (08:34)
[2021-10-06] MEDS: metoprolol succinate ER (24 HR) 50 mg Tablet PO (08:34)
--- NOTE | 2021-10-06 12:11 | PM.DCS ---
Discharge Providers Date of Admission: 10/02/21 17:46 Date of Discharge: October 06, 2021 Attending Provider at Admission: Shadi Carmichael MD Attending Provider at Discharge: Manoj Richter Diagnoses at Discharge Discharge Diagnosis (1) Acute on chronic clinical systolic heart failure: Status: Acute (2) Acute dyspnea: Status: Acute (3) CHF exacerbation: Status: Acute (4) Hx of CABG: Status: Acute (5) BPH (benign prostatic hyperplasia): Status: Acute (6) Hyperlipidemia: Status: Acute (7) Degenerative disc disease: Status: Acute (8) CKD (chronic kidney disease) stage 3, GFR 30-59 ml/min: Status: Acute (9) DM type 2 (diabetes mellitus, type 2): Status: Acute (10) CVA (cerebral vascular accident): Status: Acute (11) COPD (chronic obstructive pulmonary disease): Status: Acute (12) Hypertension: Status: Acute (13) SUKH (obstructive sleep apnea): Status: Acute (14) Acute kidney injury superimposed on CKD: Status: Acute Reason for Visit Reason for Visit: SOB, COUGH, FLUID BUILD UP, HX CHF Hospital Course Hospital Course Very pleasant 66-year-old gentleman more usually residing in [place], but recently considering staying in the area longer, with history of cardiomyopathy EF 20%, ICD and pacemaker in place, history of CABG, CVA, DM 2, BPH, HLD, COPD, HTN, CKD, DJD, right kidney nodule mass, cholelithiasis, previously sleep study positive for sleep apnea but in the past was nonadherent with CPAP, was admitted and treated for CHF exacerbation, initial x-ray with possibility of pneumonia as well, empirically covered with Augmentin, doxycycline, also for small area of what was thought to be possible cellulitis on left lower abdominal wall. Initially with hypoxia, newly requiring 4 L oxygen by nasal cannula, prior to that without need for oxygen, hypoxia and respiratory status gradually improved with diuresis and treatment. Chest x-ray repeated without evidence of pneumonia, procalcitonin negative. Further diuresis had to be held after he sustained acute kidney injury on chronic kidney disease, with creatinine increased up to 1.8. Slightly better today down to 1.7. Please follow-up renal function. Consider referral to cardiology in the area if he decides to stay longer. He is overall doing much better. Dyspnea for the most part is resolved. He is weaning off oxygen, and today appears to be doing well on room air. Home oxygen evaluation is requested prior to discharge. Left lower abdominal wall imaged with ultrasound with finding of nonspecific tiny cystic collection in the abdominal wall measuring 0.3 x 0.4 x 0.3 cm without significant surrounding hyperemia. He will complete antibiotic course, please follow-up for resolution of this. Given previously diagnosed and treated sleep apnea, with prior sleep study he reports being about 4-5 years ago, he is referred for reassessment after discussion, as he states he was unaware that untreated sleep apnea can contribute to additional comorbidities including hypertension, irregular heart rhythms, possibly even exacerbation of CHF among other problems. He is interested in pursuing a sleep study and subsequently CPAP therapy. Insulin had to be increased due to hyperglycemia. A walker is requested to assist with mobility. Physical Exam Const: COMMON NORMALS: no acute distress, patient oriented x3 and alert GENERAL APPEARANCE: cooperative and comfortable NUTRITIONAL APPEARANCE: overweight ORIENTATION/CONSCIOUSNESS: Yes awake OTHER: Pleasant, conversant, in good spirits. Feels ready to leave the hospital. HENMT: COMMON NORMALS: oropharynx normal Neck/C-Spine: OTHER: Cannot assess JVD due to very thick neck. Resp: COMMON NORMALS: normal respiratory effort and clear to auscultation bilaterally AUSCULTATION: clear to auscultation bilaterally Cardio: COMMON NORMALS: regular rhythm, S1 normal heart sound present, S2 normal heart sound present and No murmurs present (Cardio) RHYTHM: regular rhythm HEART SOUNDS: S1 normal heart sound present and S2 normal heart sound present GI: COMMON NORMALS: Normal to inspection, nondistended, normoactive bowel sounds present, Soft to palpation and non-tender PALPATION: Yes Soft to palpation OTHER: Large abdomen, soft to palpation. Small lump LL abdominal wall. No erythema. Extremity: COMMON NORMALS: no joint enlargement and no pedal edema Neuro: COMMON NORMALS: patient oriented x3 and moves all extremities SENSORIUM/ORIENTATION: Yes alert Skin: COMMON NORMALS: no rashes or lesions noted GENERAL SKIN EXAM: no rashes or lesions noted Discharge Data Data Completed and Pending: Completed Studies During Hospitalization Category Date Time Status XR chest 1V krista ble [id number] Routine Exams 10/05/21 06:00 Completed XR chest 1V krista ble [id number] Urgent Exams 10/02/21 15:39 Completed CV. echo complete * [id number] Routine Ultrasound 10/03/21 21:07 Completed [place] abdomen limite d [id number] Routine Ultrasound 10/03/21 13:23 Completed Labs from last 24 hours 10/06/21 10/06/21 10/06/21 06:25 03:00 03:00 WBC RBC Hgb Hct MCV MCH MCHC RDW Plt Count MPV Neut % (Auto) Lymph % (Auto) [place] % (Auto) Eos % (Auto) Baso % (Auto) Neut # (Auto) Lymph # (Auto) [place] # (Auto) Eos # (Auto) Baso # (Auto) Nucleated RBC % (a uto) Nucleated RBCs # Sodium 132 L Potassium 4.0 Chloride 93 L Carbon Dioxide 29 Anion Gap 14.0 BUN 42 H Creatinine 1.7 H GFR Calculation 40.3 L Glucose 235 H POC Glucose 230 H Calculated Osmolal ity 292 Calcium 9.4 Total Bilirubin 0.3 AST 11 ALT 18 Alkaline Phosphata se 95 C-Reactive Protein 7.7 H NT-Pro-B Natriuret Pep 324 H Total Protein 6.9 Albumin 4.0 Globulin 2.9 Procalcitonin 0.15 10/06/21 10/05/21 10/05/21 03:00 19:21 16:34 WBC 9.2 RBC 4.81 Hgb 14.7 Hct 44.6 MCV 92.7 MCH 30.6 MCHC 33.0 RDW 13.2 Plt Count 234 MPV 10.3 Neut % (Auto) 56.2 Lymph % (Auto) 22.2 [place] % (Auto) 13.3 Eos % (Auto) 5.7 Baso % (Auto) 1.5 Neut # (Auto) 5.17 Lymph # (Auto) 2.1 [place] # (Auto) 1.2 H Eos # (Auto) 0.5 Baso # (Auto) 0.1 Nucleated RBC % (a uto) 0 Nucleated RBCs # 0.0 Sodium Potassium Chloride Carbon Dioxide Anion Gap BUN Creatinine GFR Calculation Glucose POC Glucose 382 H 245 H Calculated Osmolal ity Calcium Total Bilirubin AST ALT Alkaline Phosphata se C-Reactive Protein NT-Pro-B Natriuret Pep Total Protein Albumin Globulin Procalcitonin Vitals: Last Vital Signs Temp 97.7 F 10/06/21 08:00 Pulse 85 10/06/21 10:17 Resp 20 H 10/06/21 08:00 BP 125/65 10/06/21 08:00 Pulse Ox 97 10/06/21 10:17 Discharge Plan Discharge Patient Disposition: Home Condition: Stable Prescriptions: New doxycycline monohydrate 100 mg Tablet 100 mg PO BID 3 Days Qty: 6 RF: 0 amoxicillin-pot clavulanate 875-125 mg Tablet 1 tab PO BID 3 Days Qty: 6 RF: 0 acetaminophen 325 mg Tablet 650 mg PO Q6H PRN (Reason: Mild/Mod Pain Or Temp >/= 101) 90 Days Qty: 90 RF: 3 Continued metoprolol succinate 50 mg tablet extended release 24 hr 50 mg PO DAILY RF: 0 clopidogrel 75 mg tablet 75 mg PO DAILY RF: 0 levothyroxine 88 mcg tablet 88 mcg PO DAILY RF: 0 tamsulosin 0.4 mg capsule 0.4 mg PO DAILY RF: 0 nitroglycerin 0.4 mg tablet, sublingual 0.4 mg sublingual PRN PRN (Reason: Chest Pain) RF: 0 furosemide 20 mg tablet 20 mg PO DAILY RF: 0 finasteride 5 mg tablet 5 mg PO DAILY RF: 0 Humalog KwikPen Insulin 100 unit/mL insulin pen 12 unit SUBCUT TID RF: 0 duloxetine 30 mg capsule,delayed release(DR/EC) 30 mg PO DAILY RF: 0 atorvastatin 20 mg Tablet 20 mg PO DAILY RF: 0 gabapentin 300 mg capsule 300 mg PO QID Qty: 30 RF: 0 Changed Levemir FlexTouch U-100 Insuln 100 unit/mL (3 mL) insulin pen 35 unit SUBCUT BID Qty: 0 RF: 0 Held spironolactone 25 mg tablet 25 mg PO DAILY RF: 0 Hold Instructions: Resume on 10/12/21. Discharge Orders: Discharge Order (Routine); Ordered 10/06/21 Ordered By: Manoj Richter Other Ambulatory Orders: Sleep Study/Titration (Routine) Timeframe: 3 Days Facility: [facility] - Location: [facility] Ordered By: Manoj Richter DME: [facility] (Order) Location: None Selected Ordered By: Manoj Richter Referrals: [facility] [Other] (Call [facility] they may be able to assist with housing.) [facility] [Outside] Amando Turcios DO [Physician] - 10/13/21 8:00 am (You have an appointment to establish primary care with Dr. Turcios. Please bring your ID, insurance cards, and medications with you to your appointment. ) Discharge Diet: Cardiac, Diabetic and Low Fat Discharge Activity: Increase activity as tolerated Patient Instructions: Heart Failure (ED), Sleep Apnea (GEN), Sleep Study (GEN) Activity Restrictions/Additional Instructions: Please take your medicine as instructed. Come back to the emergency room if you have any worsening shortness of breath despite taking the medicine. Please follow-up with primary doctor here. Discussed with him establishing with cardiology here if you intend on staying here longer time. 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 Come back if you have any new or concerning complaints. Avoid any NSAIDs like ibuprofen, Aleve, etc. Hold your spironolactone for now. Please have your primary doctor reassess your kidney function due to chronic kidney disease and noted acute kidney injury which is showing improvement. Please follow-up with sleep study to assess for sleep apnea and allow for you to be set up with CPAP for treatment. Please note untreated sleep apnea can contribute to episodes of congestive heart failure, arrhythmia including atrial fibrillation, high blood pressure, and other medical problems. Please follow-up with your primary doctor with regards to tiny fluid collection in the left lower abdominal wall to make sure it is resolving. Avoid the spot for injection of insulin. Continue optimization of diabetes control with your primary doctor. Optimization of other risk factors of cardiovascular disease. Discuss with your doctor regarding continued monitoring of right kidney soft tissue nodularity (1.5 cm in size.). Follow-up regarding chronic kidney disease, COPD, hypertension, prostate hypertrophy, gallstones and other chronic conditions. Discharge Attestations Time Spent in Discharge Care*: greater than 30 min Quality Metrics Clinical Quality Measures During this hospital stay, did patient experience: None Coding Level of Care Code Acute Chg FW DC note Diagnoses Acute on chronic clinical systolic heart failure I50.23 Acute dyspnea R06.00 CHF exacerbation I50.9 Hx of CABG Z95.1 BPH (benign prostatic hyperplasia) N40.0 Hyperlipidemia E78.5 Degenerative disc disease CKD (chronic kidney disease) stage 3, GFR 30-59 ml/min N18.3 DM type 2 (diabetes mellitus, type 2) E11.9 CVA (cerebral vascular accident) I63.9 COPD (chronic obstructive pulmonary disease) J44.9 Hypertension I10 SUKH (obstructive sleep apnea) G47.33 Acute kidney injury superimposed on CKD N17.9; N18.9
[2021-10-06 12:48] LABS: Glucose Point of Care 351 mg/dL (70-110)
[2021-10-06 17:25] LABS: Glucose Point of Care 384 mg/dL (70-110)
--- NOTE | 2021-10-06 18:18 | PC.NURSE ---
Discharge Note Patient discharged to home via private vehicle accompanied by self. Discharge instructions reviewed with patient and/or branch customer service representative. Mobile pharmacy medications and/or prescriptions provided. Belongings/home medications returned.
== END 2021-10-06 18:18 | disposition home or self-care (01) | DRG 280 ==
LOC: ER 17:50 → CSU 18:16
PROVIDERS: Admitting Provider Family Medicine; Emergency Provider Emergency Medicine; Visit Provider Internal Medicine
DX: I13.0 Hypertensive heart and chronic kidney disease with heart failure and stage 1 through stage 4 chronic kidney disease, or unspecified chronic kidney disease (principal); I50.23 Acute on chronic systolic (congestive) heart failure; I21.A1 Myocardial infarction type 2; J12.9 Viral pneumonia, unspecified; E87.1 Hypo-osmolality and hyponatremia; L03.311 Cellulitis of abdominal wall; N17.9 Acute kidney failure, unspecified; N18.30 Chronic kidney disease, stage 3 unspecified; E11.22 Type 2 diabetes mellitus with diabetic chronic kidney disease; I25.10 Atherosclerotic heart disease of native coronary artery without angina pectoris; Z95.1 Presence of aortocoronary bypass graft; Z95.5 Presence of coronary angioplasty implant and graft; Z95.810 Presence of automatic (implantable) cardiac defibrillator; T50.1X6A Underdosing of loop [high-ceiling] diuretics, initial encounter; Z91.128 Patient's intentional underdosing of medication regimen for other reason; I71.4 Abdominal aortic aneurysm, without rupture; N40.0 Benign prostatic hyperplasia without lower urinary tract symptoms; J44.9 Chronic obstructive pulmonary disease, unspecified; Z86.73 Personal history of transient ischemic attack (TIA), and cerebral infarction without residual deficits; E78.5 Hyperlipidemia, unspecified; I25.2 Old myocardial infarction; I25.5 Ischemic cardiomyopathy; Z66 Do not resuscitate; Z79.4 Long term (current) use of insulin; Z79.02 Long term (current) use of antithrombotics/antiplatelets; G47.33 Obstructive sleep apnea (adult) (pediatric); E87.6 Hypokalemia; E11.65 Type 2 diabetes mellitus with hyperglycemia
CPT/HCPCS: 36415; 36416; 71045; 76705; 80048; 80053; 82962; 83036; 83735; 83880; 84100; 84145; 84443; 84484; 85025; 86140; 93005; 93306; 94660; 94664; 96361; 96372; 96374; 96375; 99285; J1650; J1815; J1940; J2270; J3490